=== PATIENT | male | born 1955 | race Caucasian/White ===

== ENCOUNTER 2017-12-05 06:21 | Day surgery (SDC) | payer OTHER ==
[2017-12-03 14:42] VITALS: BMI 35.4
[~2017-12-05 06:21] MED LIST: TOBRAMYCIN/DEXAMETHASONE OPHTH. OINTMENT 1 TUBE OS ONE
[2017-12-05] MEDS ORDERED: DICLOFENAC SODIUM 0.1% OPHTHALMIC 2.5ML BOTTLE ONE (06:50)
[2017-12-05] MEDS: PHENYLEPHRINE 2.5% OPHTH SOLN 15 ML BOTTLE ONE ×3 (07:00→07:25)
[2017-12-05] MEDS: OFLOXACIN 0.3% OPHTHALMIC SOLUTION 5 ML BOTTLE ONE ×3 (07:00→07:25)
[2017-12-05] MEDS: MOXIFLOXACIN HCL 0.5% OPHTHALMIC 3 ML BOTTLE ONE ×3 (07:00→07:25)
[2017-12-05] MEDS ORDERED: CHONDROITIN SU A/HYALUR SOD 1 KIT ONE ×2 (07:12→08:52)
[2017-12-05] MEDS ORDERED: EPINEPHrine/PF 1 MG/1 ML (1:1,000) AMPULE ONE (07:14)
[2017-12-05] MEDS ORDERED: LIDOCAINE HCL 2% JELLY (5 ML/TUBE) ONE (07:14)
[2017-12-05] MEDS ORDERED: BSS (NA/CA/MG/K) BALANCED SALT SOLUTION OPHTH SOLN 15 ML BOTTLE ONE (07:15)
[2017-12-05] MEDS: TROPICAMIDE 1% OPHTH SOLN 15 ML BOTTLE ONE ×2 (07:15→07:25)
[2017-12-05] MEDS ORDERED: POVIDONE-IODINE 5% OPHTHALMIC PREP 30 ML SOLUTION ONE (07:15)
[2017-12-05] MEDS ORDERED: LIDOCAINE HCL/PF 1% SDV 5ML VIAL ONE (07:15)
[2017-12-05] MEDS ORDERED: MIDAZOLAM HCL 2 MG/2 ML SINGLE DOSE VIAL ONE (07:21)
[2017-12-05] MEDS ORDERED: ACETAMINOPHEN 325 MG TABLET (FP) PO PRN (07:23)
--- NOTE | 2017-12-05 07:25 | HP ---
History & Physical Update - History History: No Change (Reviewed H and P from Dr. De Jesus from 11/05/17 no changes) - Physical Physical: No Change - Assessment Assessment: No Change - Plan Plan: No Change
--- NOTE | 2017-12-05 07:29 | HP ---
- Patient Scheduled date of Surgery: 12/05/17 Scheduled Surgical Procedure: Phacoemulsification and cataract extraction with PCIOL Affected Eye: Left Chief Complaint (Indication for surgery): Decreased vision affecting ADLs - Ocular History Other Eye History: Other (NAOIN, PDR) Eye Medications: vigamox , ilevro Previous Eye Surgery: s/p ce/pciol OD, s/p prp, s/p multiple intravitreal injections ou - Medical History Illnesses: Hypertension, Diabetes, Other (s/p R BKA) Current Medications: Ambulatory Orders Ascorbic Acid [Vitamin C] 500 mg PO BID 08/01/14 Multivitamins [Multivit ([facility] Formulary)] 1 tab PO DAILY 08/01/14 Aspirin [ASA -] 1 tab PO DAILY 02/11/17 Docusate Sodium [Colace -] 2 tab PO BID 02/11/17 Fluoxetine HCl 60 mg PO DAILY 02/11/17 Furosemide [Lasix] 1 tab PO DAILY 02/11/17 Gabapentin [Neurontin] 2 cap PO BID 02/11/17 Glipizide [Glipizide ER] 10 mg PO BID 02/11/17 Linagliptin [Tradjenta] 5 mg PO DAILY 02/11/17 Loratadine [Claritin] 1 tab PO DAILY 02/11/17 Polyethylene Glycol 3350 [Miralax 119 gm Btl -] 17 gm PO BID 02/11/17 Ramipril [Altace] 2.5 mg PO DAILY 02/11/17 Insulin Glargine,Hum.rec.anlog [Lantus Solostar PEN (NF)] 30 units SQ DAILY 03/30 Nepafenac [Ilevro] 1.7 ml OD DAILY 11/20/17 Allergies/Adverse Reactions: Allergies Allergy/AdvReac Type Severity Reaction Status Date / Time No Known Drug Allergies Allergy Verified 12/03/17 14:42 lactose AdvReac Verified 12/03/17 14:42 Ocular Examination - Best Corrected Visual Acuity Distance: Right eye: HM Distance: Left eye: 20/200 - External/Slit Lamp Examination Abnormalities: stromal scar - Intraocular Pressure Intraocular Pressure - Right eye: 17 Intraocular Pressure-Left eye: 16 - Lens Lens: 2+ NS 1+ cortical 1+ PSC - Vitreous/Retina Vitreous/Retina: c:d 0.15 m dot blot heme, v severely attenuated vessels, p prp scars - Special Examination M - Right eye: +0.50-1.25 x 98 M - Left eye: +0.50-3.00 x 075 K - Right eye: 44.75/46 x 016 K - Left eye: 44.50/46 x170 AL - Right eye: 23.89 AL - Left eye: 24.02 IOL bag: +17.5 AUOOTO IOL sulcus: +16.5 MN60AC IOL AC: +14.5 MTA4uo - Impression Impression: Cataract Left Eye (PSC) - Plan Plan: Phacoemulsification and cataract extraction - IOL Left eye Post-hospital care will be provided in office on: 12/06/17
[2017-12-05] MEDS ORDERED: PHENYLEPHRINE 2.5% OPHTH SOLN 15 ML BOTTLE OP SCH (07:30)
[2017-12-05] MEDS ORDERED: KETOROLAC TROMETHAMINE 0.5% 5 ML BOTTLE OPTHALMIC OP SCH (07:30)
[2017-12-05] MEDS ORDERED: CIPROFLOXACIN HCL 0.3% OPHTH 2.5ML BOTTLE OP SCH (07:30)
[2017-12-05] MEDS ORDERED: TROPICAMIDE 1% OPHTH SOLN 15 ML BOTTLE OP SCH (07:30)
[2017-12-05] MEDS ORDERED: LIDOCAINE HCL 2% JELLY (5 ML/TUBE) TP ONE (07:43)
[2017-12-05] MEDS ORDERED: POVIDONE-IODINE 5% OPHTHALMIC PREP 30 ML SOLUTION OS ONE (07:47)
[2017-12-05] MEDS ORDERED: LIDOCAINE HCL 1% PRESERVATIVE FREE - 30ML VIAL IO ONE (07:54)
[2017-12-05] MEDS ORDERED: CHONDROITIN SU A/HYALUR SOD 1 KIT IO ONE ×2 (07:54)
[2017-12-05] MEDS ORDERED: BSS (NA/CA/MG/K) BALANCED SALT SOLUTION OPHTH SOLN 15 ML BOTTLE OS ONE (07:54)
[2017-12-05] MEDS ORDERED: EPINEPHrine/PF 1 MG/1 ML (1:1,000) AMPULE SQ ONE (08:01)
[2017-12-05] MEDS ORDERED: TOBRAMYCIN/DEXAMETHASONE OPHTH. OINTMENT 1 TUBE OS ONE (08:26)
--- NOTE | 2017-12-05 08:33 | OP ---
Ophthalmology Operative Note Pre-Operative Diagnosis: Cataract (psc) Affected Eye: Left Operation: Phacoemulsification and cataract extraction with PCIOL Findings: PSC cataract left eye Post-Operative Diagnosis: Same as Pre-op Building Components Designer: None Anesthesiologist: Tylor Shelton Anesthesia: Topical Specimens Removed: none Estimated blood loss: < 1 cc Drains & Tubes with Location: none Operative Report Dictated: Yes
--- NOTE | 2017-12-05 09:16 | OP ---
DATE OF OPERATION: 12/05/2017 PREOPERATIVE DIAGNOSIS: Posterior subcapsular cataract, left eye. POSTOPERATIVE DIAGNOSIS: Posterior subcapsular cataract, left eye. PROCEDURE: Phacoemulsification and cataract extraction with insertion of posterior chamber intraocular lens, left eye. SURGEON: Michelle Tanner MD HOT[employer] MOTEL [employer]ING SUPERVISOR: None. ANESTHESIA: Topical. ANESTHESIOLOGIST: Tylor Shelton MD OPERATIVE PROCEDURE: The patient received 2% lidocaine gel and then was gently sedated and prepped and draped in the usual sterile fashion so as to expose only the left eye. Ophthalmic Betadine was instilled into the inferior fornix. The lashes were taped out of the surgical field. An eyelid speculum was placed into the left eye. A paracentesis was made in inferior clear cornea at the limbus. Next, 0.5 mL of nonpreserved lidocaine 1% was injected into the anterior chamber. Viscoelastic material was instilled into the anterior chamber via the paracentesis. A 2.4-mm keratome was then used to create the main incision in temporal clear cornea at the limbus. A continuous curvilinear capsulorrhexis was performed using a cystotome and Utrata forceps. Hydrodissection of the lens cortex was performed using BSS on a cannula until the nucleus was noted to be freely rotating. The phacoemulsification tip was inserted via the main wound and used to sculpt 2 perpendicular grooves into the lens nucleus. The nucleus was cracked into 4 quadrants using 2 instruments. Each quadrant was lifted out of the capsule into the iris plane and individually phacoemulsified. The remaining cortical material was then aspirated using the irrigation and aspiration port. The capsular bag was inflated using Provisc, and a preloaded AcrySof lens model AU00T0, power +17.5 diopters was injected into the capsular bag and centered using a Sinskey hook. The residual viscoelastic material was removed from the anterior chamber using irrigation and aspiration. The wound edges were hydrated using BSS. The wound was tested for leakage. It was found to be watertight. Therefore, TobraDex ointment was placed into the eye. The speculum was removed from the eye, and the eyelid was closed. At this point, an eye shield was placed over the eye, and the patient was transferred to the recovery room in stable condition, told to follow up in 1 day. MICHELLE TANNER M.D. [id number]
[2017-12-05 12:17] VITALS: BP 135/75; PULSE 68; TEMP 97.9
== END 2017-12-05 10:30 ==
LOC: JASU-SURG 06:21
PROVIDERS: ATTEND Ophthalmology
PROC: 08RK3JZ Replacement of Left Lens with Synthetic Substitute, Percutaneous Approach (ICD-10-PCS; principal; 2017-12-05 07:30)
DX: H26.9 Unspecified cataract (principal); I12.9 Hypertensive chronic kidney disease with stage 1 through stage 4 chronic kidney disease, or unspecified chronic kidney disease; E11.22 Type 2 diabetes mellitus with diabetic chronic kidney disease; N18.3 Chronic kidney disease, stage 3 (moderate); Z79.4 Long term (current) use of insulin
CPT/HCPCS: 82962

== ENCOUNTER 2018-05-29 08:29 | Day surgery (SDC) | payer OTHER ==
[2018-05-29 10:33] VITALS: BMI 34.7
[2018-05-29 11:33] VITALS: TEMP 98
[2018-05-29 15:19] VITALS: BP 138/66; PULSE 69
--- NOTE | 2018-05-30 17:35 | PATH ---
Surgical Pathology Report Patient Name: LILIANA ROBINS [facility]. Rec. #: [id number] /Age/Gender: 1955 (Age: 63) / M Account: [id number] Location: U-ENDOSCOPY Taken: 05/29/2018 Received: 05/29/2018 Reported: 05/30/2018 Physicians: Dylan Byrne M.D. Specimen(s) Received BX STOMACH Clinical History History of-ulcer, history of anemia Postoperative diagnosis: Erythema, retained food, healed ulcer Final Diagnosis STOMACH, BODY, BIOPSY: GASTRIC BODY MUCOSA WITH MILD CHRONIC GASTRITIS AND FOCAL EROSION. IMMUNOHISTOCHEMICAL STAIN FOR H. PYLORI IS NEGATIVE. Electronically Signed Keila Bond M.D. Gross Description Received in formalin, labeled "body of stomach biopsy" are 2 cisneros, irregular portions of soft tissue averaging 0.4 cm. in greatest dimension. The specimens are submitted in toto in one cassette. /05/29/2018 saudi05/29/2018
== END 2018-05-29 14:00 | disposition home or self-care (01) ==
LOC: JASU-ENDO 08:29
PROVIDERS: ATTEND Internal Medicine Gastroenterology
PROC: 0DB68ZX Excision of Stomach, Via Natural or Artificial Opening Endoscopic, Diagnostic (ICD-10-PCS; principal; 2018-05-29 08:30)
DX: D64.9 Anemia, unspecified (principal)
CPT/HCPCS: 82962; 88305-TC; 88342-TC

== ENCOUNTER 2021-01-28 09:41 | Inpatient (IN) | payer OTHER ==
[2021-01-28] MEDS ORDERED: DIPHTH,PERTUSS(ACELL),TET 0.5 ML DISP.SYRIN IM ONE ×2 (11:58→12:03)
[2021-01-29 01:38] LABS: EPI CELLS 4 /uL (0-25.1); HYALINE CASTS 3 /uL (0-3.1); URINE APPEARANCE CLEAR; URINE BACTERIA 19 /uL (0-1359); URINE BILIRUBIN NEGATIVE (NEGATIVE); URINE COLOR DK YELLOW; URINE GLUCOSE (UA) NEGATIVE (NEGATIVE); URINE KETONE TRACE (NEGATIVE); URINE LEUK ESTERASE NEGATIVE (NEGATIVE); URINE NITRITE NEGATIVE (NEGATIVE); URINE PROTEIN 1+ (NEGATIVE); URINE RBC 28 /uL (0-23.9); URINE WBC 28 /uL (0-25.8)
[2021-01-29] MEDS: ACETAMINOPHEN 325 MG TABLET (FP) PO PRN ×4 (02:00→21:13)
[2021-01-29] MEDS: INSULIN SLIDING SCALE (NOVOLOG) 1 VIAL SQ SCH ×4 (06:08→21:15)
[2021-01-29] MEDS: ENOXAPARIN NA (PORCINE) 40 MG/0.4 ML DISP.SYRIN SQ SCH (10:42)
[2021-01-29 11:43] LABS: BASO % 0.3 % (0-2.0); EOS % 0.4 % (0-4.5); HEMATOCRIT 29.3 % (35.4-49); HEMOGLOBIN 9.7 GM/dL (11.7-16.9); LYMPH % 7.2 % (8-40); MCH 27.9 pg (25.7-33.7); MCHC 32.9 g/dl (32.0-35.9); MEAN CELL VOLUME 84.9 fl (80-96); MEAN PLT VOLUME 7.5 fl (7.5-11.1); MONO % 12.7 % (3.8-10.2); NEUT % 79.4 % (42.8-82.8); PLATELET COUNT 325 10^3/uL (134-434); RBC 3.46 M/mm3 (4.00-5.60); RDW 15.3 % (11.9-15.9)
[2021-01-29 12:03] LABS: ALBUMIN 2.2 g/dl (3.4-5.0); BLOOD UREA NITROGEN 56.3 mg/dL (7-18); CALCIUM 8.7 mg/dL (8.5-10.1)
[2021-01-29 12:06] LABS: BILIRUBIN,TOTAL 0.6 mg/dL (0.2-1)
[2021-01-29] MEDS ORDERED: PT OWN MED DRAWER 7, Y5N ONE (12:15)
[2021-01-29] MEDS ORDERED: cefTRIAXone SODIUM 1 GM VIAL ONE (16:38)
[2021-01-29] MEDS ORDERED: DEXTROSE 5%-WATER - 50 ML IVPB ONE (16:38)
[2021-01-29] MEDS: CEFTRIAXONE 1 GM in DEXTROSE 5%-WATER - 50 ML IVPB SCH (17:01)
[2021-01-29] MEDS: SODIUM CHLORIDE 1,000 ML IV SCH (17:02)
[2021-01-29] MEDS: MINERAL OIL/PET HY-PHL TOPICAL OINTMENT 454 GM JAR TP SCH (21:13)
[2021-01-29] MEDS: FLUoxetine HCL 20 MG CAPSULE PO SCH (21:14)
[2021-01-29] MEDS: BACITRACIN 15 GM TUBE TOPICAL OINTMENT TP SCH (21:14)
[2021-01-29] MEDS: GABAPENTIN 100 MG CAPSULE PO SCH (21:14)
[2021-01-30] MEDS: SODIUM CHLORIDE 1,000 ML IV SCH ×4 (01:47→21:43)
[2021-01-30] MEDS: FLUoxetine HCL 20 MG CAPSULE PO SCH ×3 (05:37→21:46)
[2021-01-30] MEDS: INSULIN SLIDING SCALE (NOVOLOG) 1 VIAL SQ SCH ×4 (06:07→21:51)
[2021-01-30] MEDS ORDERED: DEXTROSE 5%-WATER - 50 ML IVPB ONE (09:20)
[2021-01-30] MEDS ORDERED: cefTRIAXone SODIUM 1 GM VIAL ONE (09:20)
[2021-01-30] MEDS ORDERED: PT OWN MED DRAWER 7, Y5N ONE ×2 (09:20→22:01)
[2021-01-30] MEDS: HYDROCHLOROTHIAZIDE 12.5 MG CAPSULE (FP) PO SCH (09:23)
[2021-01-30] MEDS: PANTOPRAZOLE 40 MG TABLET PO SCH (09:23)
[2021-01-30] MEDS: MINERAL OIL/PET HY-PHL TOPICAL OINTMENT 454 GM JAR TP SCH ×2 (09:23→21:45)
[2021-01-30] MEDS: CEFTRIAXONE 1 GM in DEXTROSE 5%-WATER - 50 ML IVPB SCH (09:23)
[2021-01-30] MEDS: BACITRACIN 15 GM TUBE TOPICAL OINTMENT TP SCH ×3 (09:23→21:44)
[2021-01-30] MEDS: GABAPENTIN 100 MG CAPSULE PO SCH ×2 (09:23→21:46)
[2021-01-30] MEDS: ENOXAPARIN NA (PORCINE) 40 MG/0.4 ML DISP.SYRIN SQ SCH (09:23)
[2021-01-30 09:25] LABS: BASO % 0.4 % (0-2.0); EOS % 3.4 % (0-4.5); HEMATOCRIT 30.3 % (35.4-49); HEMOGLOBIN 9.9 GM/dL (11.7-16.9); LYMPH % 6.8 % (8-40); MCH 28.2 pg (25.7-33.7); MCHC 32.7 g/dl (32.0-35.9); MEAN PLT VOLUME 7.9 fl (7.5-11.1); MONO % 9.1 % (3.8-10.2); NEUT % 80.3 % (42.8-82.8); PLATELET COUNT 375 10^3/uL (134-434); RBC 3.52 M/mm3 (4.00-5.60); RDW 15.3 % (11.9-15.9); WHITE BLOOD COUNT 9.7 K/mm3 (4.0-10.0)
[2021-01-30] MEDS ORDERED: PATIENT'S OWN MEDICATION (NON-FORMULARY) (Patiromer Calcium Sorbitex [Veltassa] 8.4 GM Pow PO SCH (10:00)
[2021-01-30 10:16] LABS: BLOOD UREA NITROGEN 40.3 mg/dL (7-18); CALCIUM 8.1 mg/dL (8.5-10.1); MAGNESIUM 2.8 mg/dL (1.8-2.4)
[2021-01-30 10:19] LABS: CREATININE 1.2 mg/dL (0.55-1.3)
[2021-01-30 10:20] LABS: PHOSPHOROUS 2.9 mg/dL (2.5-4.9)
[2021-01-30 10:21] LABS: BILIRUBIN,TOTAL 0.6 mg/dL (0.2-1); TOT PROT 5.9 g/dl (6.4-8.2)
[2021-01-30] MEDS ORDERED: INSULIN (NOVOLOG) ASPART 100 UNITS/ML 10ML VIAL ONE (11:35)
[2021-01-30] MEDS: NYSTATIN POWDER 100,000 UNITS/GM - 15 GM TOPICAL POWDER TP SCH ×2 (11:56→22:03)
[2021-01-30 15:47] VITALS: BMI 30.5
[2021-01-31] MEDS: SODIUM CHLORIDE 1,000 ML IV SCH (05:46)
[2021-01-31] MEDS: FLUoxetine HCL 20 MG CAPSULE PO SCH ×3 (05:49→21:25)
[2021-01-31] MEDS: INSULIN SLIDING SCALE (NOVOLOG) 1 VIAL SQ SCH ×4 (06:02→21:25)
[2021-01-31] MEDS: BACITRACIN 15 GM TUBE TOPICAL OINTMENT TP SCH ×2 (10:00→21:27)
[2021-01-31] MEDS ORDERED: cefTRIAXone SODIUM 1 GM VIAL ONE (10:57)
[2021-01-31] MEDS ORDERED: DEXTROSE 5%-WATER - 50 ML IVPB ONE (10:57)
[2021-01-31] MEDS: GABAPENTIN 100 MG CAPSULE PO SCH ×2 (10:59→21:25)
[2021-01-31] MEDS: ENOXAPARIN NA (PORCINE) 40 MG/0.4 ML DISP.SYRIN SQ SCH (10:59)
[2021-01-31] MEDS: HYDROCHLOROTHIAZIDE 12.5 MG CAPSULE (FP) PO SCH (10:59)
[2021-01-31] MEDS: PANTOPRAZOLE 40 MG TABLET PO SCH (10:59)
[2021-01-31] MEDS: CEFTRIAXONE 1 GM in DEXTROSE 5%-WATER - 50 ML IVPB SCH (10:59)
[2021-01-31] MEDS: MINERAL OIL/PET HY-PHL TOPICAL OINTMENT 454 GM JAR TP SCH ×2 (11:00→21:26)
[2021-01-31] MEDS: NYSTATIN POWDER 100,000 UNITS/GM - 15 GM TOPICAL POWDER TP SCH ×2 (11:00→21:28)
[2021-01-31] MEDS ORDERED: PATIENT'S OWN MEDICATION (NON-FORMULARY) (Lisinopril/Hydrochlorothiazide [Lisinopril-Hctz PO SCH (11:30)
[2021-01-31] MEDS ORDERED: LISINOPRIL 10 MG TABLET PO ONE (11:45)
[2021-01-31] MEDS ORDERED: LISINOPRIL 10 MG TABLET PO SCH (11:45)
[2021-01-31] MEDS ORDERED: HYDROCHLOROTHIAZIDE 12.5 MG CAPSULE (FP) PO SCH (11:45)
[2021-01-31] MEDS ORDERED: INSULIN (NOVOLOG) ASPART 100 UNITS/ML 10ML VIAL ONE ×2 (12:08→20:56)
[2021-01-31] MEDS ORDERED: PT OWN MED DRAWER 7, Y5N ONE (14:30)
[2021-01-31 15:37] LABS: BASO % 0.5 % (0-2.0); EOS % 4.8 % (0-4.5); HEMATOCRIT 29.8 % (35.4-49); HEMOGLOBIN 9.6 GM/dL (11.7-16.9); LYMPH % 10.3 % (8-40); MCH 27.5 pg (25.7-33.7); MCHC 32.3 g/dl (32.0-35.9); MEAN CELL VOLUME 85.4 fl (80-96); MEAN PLT VOLUME 7.5 fl (7.5-11.1); MONO % 10.9 % (3.8-10.2); NEUT % 73.5 % (42.8-82.8); PLATELET COUNT 353 10^3/uL (134-434); RBC 3.49 M/mm3 (4.00-5.60); RDW 15.4 % (11.9-15.9); WHITE BLOOD COUNT 7.9 K/mm3 (4.0-10.0)
[2021-01-31 15:58] LABS: BLOOD UREA NITROGEN 22.7 mg/dL (7-18); MAGNESIUM 2.3 mg/dL (1.8-2.4)
[2021-01-31 16:01] LABS: PHOSPHOROUS 2.5 mg/dL (2.5-4.9)
[2021-01-31 16:02] LABS: BILIRUBIN,TOTAL 0.3 mg/dL (0.2-1); TOT PROT 5.7 g/dl (6.4-8.2)
[2021-01-31 16:06] LABS: CALCIUM 8.2 mg/dL (8.5-10.1)
[2021-01-31] MEDS: FUROSEMIDE 20 MG TABLET (FP) PO SCH ×2 (16:30→20:15)
[2021-02-01] MEDS: FUROSEMIDE 20 MG TABLET (FP) PO SCH (06:26)
[2021-02-01] MEDS: FLUoxetine HCL 20 MG CAPSULE PO SCH (06:26)
[2021-02-01] MEDS: INSULIN SLIDING SCALE (NOVOLOG) 1 VIAL SQ SCH (06:27)
[2021-02-01] MEDS ORDERED: cefTRIAXone SODIUM 1 GM VIAL ONE (09:39)
[2021-02-01] MEDS ORDERED: DEXTROSE 5%-WATER - 50 ML IVPB ONE (09:40)
[2021-02-01] MEDS ORDERED: PT OWN MED DRAWER 7, Y5N ONE ×2 (09:42→12:44)
[2021-02-01] MEDS: PANTOPRAZOLE 40 MG TABLET PO SCH (09:44)
[2021-02-01] MEDS: GABAPENTIN 100 MG CAPSULE PO SCH (09:44)
[2021-02-01] MEDS: ENOXAPARIN NA (PORCINE) 40 MG/0.4 ML DISP.SYRIN SQ SCH (09:44)
[2021-02-01] MEDS: CEFTRIAXONE 1 GM in DEXTROSE 5%-WATER - 50 ML IVPB SCH (09:44)
[2021-02-01] MEDS: NYSTATIN POWDER 100,000 UNITS/GM - 15 GM TOPICAL POWDER TP SCH (09:45)
[2021-02-01] MEDS: BACITRACIN 15 GM TUBE TOPICAL OINTMENT TP SCH (09:46)
[2021-02-01] MEDS: MINERAL OIL/PET HY-PHL TOPICAL OINTMENT 454 GM JAR TP SCH (09:46)
[2021-02-01] MEDS ORDERED: LISINOPRIL 10 MG TABLET PO SCH (10:00)
[2021-02-01] MEDS ORDERED: HYDROCHLOROTHIAZIDE 12.5 MG CAPSULE (FP) PO SCH (10:00)
[2021-02-01 10:08] VITALS: BP 112/60; PULSE 68; TEMP 98.5
== END 2021-02-01 11:00 | DRG 683 ==
LOC: JER 09:41 → JERBED 17:35 → J8W 20:51 → OBSVTOIN 01-31 14:03
PROVIDERS: ADMIT Internal Medicine; ATTEND Internal Medicine
DX: N17.9 Acute kidney failure, unspecified (principal); L97.929 Non-pressure chronic ulcer of unspecified part of left lower leg with unspecified severity; N39.0 Urinary tract infection, site not specified; Z89.511 Acquired absence of right leg below knee; B35.6 Tinea cruris; I12.9 Hypertensive chronic kidney disease with stage 1 through stage 4 chronic kidney disease, or unspecified chronic kidney disease; E11.22 Type 2 diabetes mellitus with diabetic chronic kidney disease; N18.9 Chronic kidney disease, unspecified; S91.119A Laceration without foreign body of unspecified toe without damage to nail, initial encounter; W19.XXXA Unspecified fall, initial encounter; Y93.89 Activity, other specified; Y92.89 Other specified places as the place of occurrence of the external cause; Y99.8 Other external cause status
CPT/HCPCS: 36415; 71046-TC-FY; 73523-TC-FY; 80053; 81003; 82962; 83735; 83935; 84100; 84300; 85025; 87040; 87070; 87077; 87081; 87086; 87186; 87205; 90715; 99285-25; C9803; G0378; U0003; U0005

== ENCOUNTER 2021-02-21 05:51 | Inpatient (IN) | payer OTHER ==
[2021-02-21] MEDS ORDERED: FAMOTIDINE 20 MG/50 ML IVPB 20 MG/50 ML MG IVPB ONE ×2 (07:28→08:12)
[2021-02-21] MEDS ORDERED: METOCLOPRAMIDE HCL INJECTION 10 MG/2 ML VIAL IVPB ONE (07:28)
[2021-02-21] MEDS ORDERED: SODIUM CHLORIDE 0.9% 500 ML INFUS.BAG IV ONE (07:29)
[2021-02-21] MEDS ORDERED: ACETAMINOPHEN 1000 MG/100 ML VIAL IVPB ONE (07:29)
[2021-02-21 07:40] LABS: BASO % 0.5 % (0-2.0); HEMATOCRIT 33.6 % (35.4-49); HEMOGLOBIN 10.8 GM/dL (11.7-16.9); LYMPH % 3.3 % (8-40); MCH 26.2 pg (25.7-33.7); MEAN CELL VOLUME 81.8 fl (80-96); MEAN PLT VOLUME 7.8 fl (7.5-11.1); MONO % 6.8 % (3.8-10.2); NEUT % 89.4 % (42.8-82.8); PLATELET COUNT 382 10^3/uL (134-434); RBC 4.11 M/mm3 (4.00-5.60); RDW 16.5 % (11.9-15.9)
[2021-02-21 07:58] LABS: CHLORIDE 100 mmol/L (98-107); SODIUM 136 mmol/L (136-145)
[2021-02-21 08:00] LABS: CALCIUM 8.6 mg/dL (8.5-10.1)
[2021-02-21 08:01] LABS: ALBUMIN 2.6 g/dl (3.4-5.0); ANION GAP 12 MMOL/L (8-16); BLOOD UREA NITROGEN 24.4 mg/dL (7-18); CO2 24 mmol/L (21-32); LIPASE 77 U/L (73-393)
[2021-02-21 08:03] LABS: MAGNESIUM 1.9 mg/dL (1.8-2.4)
[2021-02-21 08:04] LABS: CREATININE 1.1 mg/dL (0.55-1.3); SGOT/AST 385 U/L (15-37); SGPT/ALT 62 U/L (13-61)
[2021-02-21 08:05] LABS: BILIRUBIN,TOTAL 0.7 mg/dL (0.2-1); TOT PROT 7.5 g/dl (6.4-8.2)
[2021-02-21 08:06] LABS: GLUCOSE,RANDOM 192 mg/dL (74-106); PHOSPHOROUS 2.6 mg/dL (2.5-4.9)
[2021-02-21 08:07] LABS: ALK PHOS 137 U/L (45-117)
[2021-02-21] MEDS ORDERED: METOCLOPRAMIDE HCL INJECTION 10 MG/2 ML VIAL ONE (08:11)
[2021-02-21] MEDS ORDERED: ACETAMINOPHEN INJECTION 100 ML IVPB ONE (08:11)
[2021-02-21] MEDS ORDERED: CEFTRIAXONE 1,000 MG in DEXTROSE 5%-WATER - 50 ML IVPB ONE (11:31)
[2021-02-21] MEDS ORDERED: cefTRIAXone SODIUM 1 GM VIAL ONE (13:13)
[2021-02-21] MEDS: LACTATED RINGERS SOLUTION 1,000 ML/1,000 ML INFUS.BAG IV SCH (13:15)
[2021-02-21 14:47] LABS: IRON SERUM 9 ug/dL (50-175); TOTAL IRON BINDING CAPACITY 247 ug/dL (250-450)
[2021-02-21] MEDS: NYSTATIN POWDER 100,000 UNITS/GM - 15 GM TOPICAL POWDER TP SCH (23:00)
[2021-02-21] MEDS: INSULIN SLIDING SCALE (NOVOLOG) 1 VIAL SQ SCH (23:34)
[2021-02-21] MEDS ORDERED: ONDANSETRON 4 MG/2 ML VIAL IVPUSH ONE (23:45)
[2021-02-22] MEDS: INSULIN SLIDING SCALE (NOVOLOG) 1 VIAL SQ SCH ×5 (00:59→22:10)
[2021-02-22] MEDS: CEFAZOLIN 1 GM/D5W 1 GM/50 ML BAG IVPB SCH ×2 (03:00→04:51)
[2021-02-22] MEDS ORDERED: ceFAZolin SODIUM 1 GM VIAL ONE ×3 (04:51→16:10)
[2021-02-22] MEDS ORDERED: DEXTROSE 5%-WATER - 50 ML IVPB ONE ×3 (04:52→16:11)
[2021-02-22 05:50] VITALS: BMI 37.6
[2021-02-22] MEDS ORDERED: ONDANSETRON 4 MG/2 ML VIAL IVPUSH ONE ×2 (06:28→12:37)
[2021-02-22 07:04] LABS: BASO % 0.2 % (0-2.0); HEMATOCRIT 31.8 % (35.4-49); HEMOGLOBIN 10.1 GM/dL (11.7-16.9); LYMPH % 4.7 % (8-40); MCHC 31.7 g/dl (32.0-35.9); MEAN CELL VOLUME 82.2 fl (80-96); MEAN PLT VOLUME 7.5 fl (7.5-11.1); MONO % 9.5 % (3.8-10.2); NEUT % 85.6 % (42.8-82.8); PLATELET COUNT 387 10^3/uL (134-434); RBC 3.87 M/mm3 (4.00-5.60); RDW 16.3 % (11.9-15.9)
[2021-02-22] MEDS: LACTATED RINGERS SOLUTION 1,000 ML/1,000 ML INFUS.BAG IV SCH ×2 (07:09→13:18)
[2021-02-22 08:02] LABS: ALBUMIN 2.3 g/dl (3.4-5.0); CALCIUM 8.5 mg/dL (8.5-10.1)
[2021-02-22 08:03] LABS: BLOOD UREA NITROGEN 30.6 mg/dL (7-18); MAGNESIUM 1.9 mg/dL (1.8-2.4)
[2021-02-22 08:05] LABS: CREATININE 1.2 mg/dL (0.55-1.3); PHOSPHOROUS 3.1 mg/dL (2.5-4.9)
[2021-02-22 08:06] LABS: BILIRUBIN,TOTAL 0.4 mg/dL (0.2-1)
[2021-02-22 08:07] LABS: TOT PROT 6.6 g/dl (6.4-8.2)
[2021-02-22] MEDS: CEFAZOLIN 1 GM in DEXTROSE 5%-WATER - 1 GM/50 ML IVPB IVPB SCH ×2 (09:31→18:22)
[2021-02-22] MEDS: NYSTATIN POWDER 100,000 UNITS/GM - 15 GM TOPICAL POWDER TP SCH (11:00)
[2021-02-22 11:29] LABS: INR 1.33 (0.83-1.09); PROTHROMBIN TIME (PATIENT) 16.2 SEC (9.7-13.0)
[2021-02-22 11:32] LABS: ACTIVATED PTT 27.9 SECONDS (25.2-36.5)
[2021-02-22 17:38] LABS: COCAINE, UR NEGATIVE (NEGATIVE); URINE BENZODIAZEPINES NEGATIVE (NEGATIVE)
[2021-02-22 17:39] LABS: METHADONE, UR NEGATIVE (NEGATIVE); OPIATES, URI NEGATIVE (NEGATIVE); PHENCYCLIDINE,URINE NEGATIVE (NEGATIVE); URINE BARBITURATES NEGATIVE (NEGATIVE)
[2021-02-22 17:41] LABS: URINE AMPHETAMINES NEGATIVE (NEGATIVE)
[2021-02-22] MEDS ORDERED: FUROSEMIDE 20 MG TABLET (FP) PO SCH (20:00)
[2021-02-22] MEDS ORDERED: TRIMETHOBENZAMIDE HCL 200MG/2ML INJ IM PRN (20:53)
[2021-02-22] MEDS ORDERED: INSULIN (NOVOLOG) ASPART 100 UNITS/ML 10ML VIAL ONE (22:06)
[2021-02-22] MEDS: GABAPENTIN 100 MG CAPSULE PO SCH (22:09)
[2021-02-22] MEDS: FLUoxetine HCL 20 MG CAPSULE PO SCH (22:09)
[2021-02-22] MEDS: ATORVASTATIN CA 80 MG TABLET (FP) PO SCH (22:09)
[2021-02-22] MEDS: BACITRACIN 15 GM TUBE TOPICAL OINTMENT TP SCH (22:10)
[2021-02-22] MEDS ORDERED: PT OWN MED DRAWER 7, Y5N ONE (22:54)
[2021-02-23] MEDS ORDERED: DEXTROSE 5%-WATER - 50 ML IVPB ONE ×3 (01:28→14:13)
[2021-02-23] MEDS ORDERED: ceFAZolin SODIUM 1 GM VIAL ONE ×2 (01:28→10:05)
[2021-02-23] MEDS: CEFAZOLIN 1 GM in DEXTROSE 5%-WATER - 1 GM/50 ML IVPB IVPB SCH ×2 (02:27→10:07)
[2021-02-23 05:38] LABS: EPI CELLS 2 /uL (0-25.1); HYALINE CASTS 0 /uL (0-3.1); URINE APPEARANCE CLOUDY; URINE BACTERIA 4 /uL (0-1359); URINE BILIRUBIN NEGATIVE (NEGATIVE); URINE COLOR YELLOW; URINE GLUCOSE (UA) NEGATIVE (NEGATIVE); URINE KETONE TRACE (NEGATIVE); URINE LEUK ESTERASE TRACE (NEGATIVE); URINE NITRITE NEGATIVE (NEGATIVE); URINE PROTEIN 2+ (NEGATIVE); URINE RBC 24 /uL (0-23.9); URINE WBC 4 /uL (0-25.8)
[2021-02-23] MEDS: INSULIN SLIDING SCALE (NOVOLOG) 1 VIAL SQ SCH ×4 (06:58→21:10)
[2021-02-23] MEDS: FLUoxetine HCL 20 MG CAPSULE PO SCH ×3 (06:58→21:10)
[2021-02-23] MEDS ORDERED: INSULIN (NOVOLOG) ASPART 100 UNITS/ML 10ML VIAL ONE ×2 (07:05→19:45)
[2021-02-23 07:51] LABS: BASO % 0.2 % (0-2.0); HEMATOCRIT 30.5 % (35.4-49); HEMOGLOBIN 9.7 GM/dL (11.7-16.9); MCH 26.3 pg (25.7-33.7); MCHC 31.8 g/dl (32.0-35.9); MEAN CELL VOLUME 82.5 fl (80-96); MEAN PLT VOLUME 7.9 fl (7.5-11.1); MONO % 10.4 % (3.8-10.2); NEUT % 81.4 % (42.8-82.8); PLATELET COUNT 403 10^3/uL (134-434); RDW 16.3 % (11.9-15.9); WHITE BLOOD COUNT 9.9 K/mm3 (4.0-10.0)
[2021-02-23 08:19] LABS: ALBUMIN 2.2 g/dl (3.4-5.0)
[2021-02-23 08:20] LABS: BLOOD UREA NITROGEN 33.1 mg/dL (7-18); CALCIUM 8.8 mg/dL (8.5-10.1); MAGNESIUM 2.2 mg/dL (1.8-2.4)
[2021-02-23 08:24] LABS: CREATININE 1.1 mg/dL (0.55-1.3); PHOSPHOROUS 2.6 mg/dL (2.5-4.9)
[2021-02-23 08:25] LABS: BILIRUBIN,TOTAL 0.9 mg/dL (0.2-1); TOT PROT 6.4 g/dl (6.4-8.2)
[2021-02-23] MEDS ORDERED: PATIENT'S OWN MEDICATION (NON-FORMULARY) (Lisinopril/Hydrochlorothiazide [Lisinopril-Hctz PO SCH (10:00)
[2021-02-23] MEDS ORDERED: PT OWN MED DRAWER 7, Y5N ONE (10:04)
[2021-02-23] MEDS: LORATADINE 10 MG TABLET PO SCH (10:12)
[2021-02-23] MEDS: GABAPENTIN 100 MG CAPSULE PO SCH ×2 (10:12→21:10)
[2021-02-23] MEDS: HYDROCHLOROTHIAZIDE 12.5 MG CAPSULE (FP) PO SCH (10:12)
[2021-02-23] MEDS: PANTOPRAZOLE 40 MG TABLET PO SCH (10:13)
[2021-02-23] MEDS: LISINOPRIL 10 MG TABLET PO SCH (10:13)
[2021-02-23] MEDS: BACITRACIN 15 GM TUBE TOPICAL OINTMENT TP SCH ×2 (10:13→21:10)
[2021-02-23] MEDS: NYSTATIN POWDER 100,000 UNITS/GM - 15 GM TOPICAL POWDER TP SCH (10:14)
[2021-02-23] MEDS: DOCUSATE SODIUM 100 MG CAPSULE (FP) PO SCH (10:43)
[2021-02-23] MEDS ORDERED: cefTRIAXone SODIUM 1 GM VIAL ONE (14:12)
[2021-02-23] MEDS: LACTATED RINGERS SOLUTION 1,000 ML/1,000 ML INFUS.BAG IV SCH (14:15)
[2021-02-23] MEDS: CEFTRIAXONE 1 GM in DEXTROSE 5%-WATER - 50 ML IVPB SCH (14:15)
[2021-02-23] MEDS ORDERED: BUPIVACAINE HCL/PF 0.5% (5MG/ML) 10 ML VIAL ONE (15:59)
[2021-02-23] MEDS ORDERED: PHENYLEPHRINE HCL 10 MG/1 ML SINGLE DOSE VIAL ONE (18:13)
[2021-02-23] MEDS: ATORVASTATIN CA 80 MG TABLET (FP) PO SCH (21:10)
[2021-02-23] MEDS: LIDOCAINE 5% TOPICAL PATCH TP SCH (22:39)
[2021-02-23] MEDS: LIDOCAINE PATCH REMOVAL MC SCH (22:39)
[2021-02-24] MEDS: INSULIN SLIDING SCALE (NOVOLOG) 1 VIAL SQ SCH ×4 (06:15→21:58)
[2021-02-24] MEDS: FLUoxetine HCL 20 MG CAPSULE PO SCH ×3 (06:15→21:57)
[2021-02-24 08:37] LABS: BASO % 0.3 % (0-2.0); EOS % 2.5 % (0-4.5); HEMATOCRIT 31.3 % (35.4-49); HEMOGLOBIN 9.9 GM/dL (11.7-16.9); LYMPH % 10.6 % (8-40); MCH 26.4 pg (25.7-33.7); MCHC 31.7 g/dl (32.0-35.9); MEAN CELL VOLUME 83.4 fl (80-96); MEAN PLT VOLUME 7.9 fl (7.5-11.1); MONO % 10.3 % (3.8-10.2); NEUT % 76.3 % (42.8-82.8); PLATELET COUNT 365 10^3/uL (134-434); RBC 3.76 M/mm3 (4.00-5.60); RDW 16.7 % (11.9-15.9); WHITE BLOOD COUNT 7.4 K/mm3 (4.0-10.0)
[2021-02-24] MEDS ORDERED: BUPIVACAINE HCL/PF 0.5% (5MG/ML) 10 ML VIAL ONE (08:37)
[2021-02-24 08:58] LABS: ALBUMIN 2.1 g/dl (3.4-5.0); BLOOD UREA NITROGEN 26.2 mg/dL (7-18); CALCIUM 8.2 mg/dL (8.5-10.1)
[2021-02-24 09:01] LABS: MAGNESIUM 1.9 mg/dL (1.8-2.4)
[2021-02-24 09:02] LABS: BILIRUBIN,TOTAL 1.2 mg/dL (0.2-1); PHOSPHOROUS 2.4 mg/dL (2.5-4.9)
[2021-02-24] MEDS: DOCUSATE SODIUM 100 MG CAPSULE (FP) PO SCH (09:54)
[2021-02-24] MEDS ORDERED: PT OWN MED DRAWER 7, Y5N ONE (09:58)
[2021-02-24] MEDS ORDERED: DEXTROSE 5%-WATER - 50 ML IVPB ONE (09:58)
[2021-02-24] MEDS ORDERED: cefTRIAXone SODIUM 1 GM VIAL ONE (09:58)
[2021-02-24] MEDS: NYSTATIN POWDER 100,000 UNITS/GM - 15 GM TOPICAL POWDER TP SCH (10:05)
[2021-02-24] MEDS: PANTOPRAZOLE 40 MG TABLET PO SCH (10:05)
[2021-02-24] MEDS: BACITRACIN 15 GM TUBE TOPICAL OINTMENT TP SCH ×2 (10:06→22:06)
[2021-02-24] MEDS: LISINOPRIL 10 MG TABLET PO SCH (10:06)
[2021-02-24] MEDS: LORATADINE 10 MG TABLET PO SCH (10:06)
[2021-02-24] MEDS: GABAPENTIN 100 MG CAPSULE PO SCH ×2 (10:06→21:57)
[2021-02-24] MEDS: HYDROCHLOROTHIAZIDE 12.5 MG CAPSULE (FP) PO SCH (10:06)
[2021-02-24] MEDS: LIDOCAINE 5% TOPICAL PATCH TP SCH (10:06)
[2021-02-24] MEDS: CEFTRIAXONE 1 GM in DEXTROSE 5%-WATER - 50 ML IVPB SCH (10:06)
[2021-02-24] MEDS: LACTATED RINGERS SOLUTION 1,000 ML/1,000 ML INFUS.BAG IV SCH (12:13)
[2021-02-24 15:41] VITALS: TEMP 98.4
[2021-02-24] MEDS: LIDOCAINE PATCH REMOVAL MC SCH (21:56)
[2021-02-24] MEDS: ATORVASTATIN CA 80 MG TABLET (FP) PO SCH (21:57)
[2021-02-24] MEDS ORDERED: HEPARIN NA (PORCINE) 5,000 UNITS/ML 1ML VIAL SQ SCH (22:00)
[2021-02-24 22:09] VITALS: BP 121/62; PULSE 73
== END 2021-02-25 03:15 | disposition short-term general hospital (02) | DRG 375 ==
LOC: JER 05:51 → JERBED 11:30 → J8W 18:29
PROVIDERS: ADMIT Internal Medicine
DX: D49.0 Neoplasm of unspecified behavior of digestive system (principal); K80.00 Calculus of gallbladder with acute cholecystitis without obstruction; R18.8 Other ascites; L97.929 Non-pressure chronic ulcer of unspecified part of left lower leg with unspecified severity; R10.11 Right upper quadrant pain; R59.9 Enlarged lymph nodes, unspecified; R63.0 Anorexia; N18.30 Chronic kidney disease, stage 3 unspecified; E11.51 Type 2 diabetes mellitus with diabetic peripheral angiopathy without gangrene; E11.22 Type 2 diabetes mellitus with diabetic chronic kidney disease; I12.9 Hypertensive chronic kidney disease with stage 1 through stage 4 chronic kidney disease, or unspecified chronic kidney disease; R21 Rash and other nonspecific skin eruption; E86.0 Dehydration; R16.0 Hepatomegaly, not elsewhere classified; R74.01 Elevation of levels of liver transaminase levels; I87.2 Venous insufficiency (chronic) (peripheral); D72.829 Elevated white blood cell count, unspecified
CPT/HCPCS: 36415; 71045-TC-FY; 74176-TC; 76705-TC; 78227-TC; 80053; 80307; 81003; 82105; 82378; 82550; 82553; 82728; 82962; 83036; 83516; 83540; 83550; 83690; 83735; 84100; 84484; 85025; 85610; 85730; 86038; 86301; 86705; 86706; 86707; 86708; 87086; 87340; 87350; 87517; 87522; 93005; 93010; 99285-25; A9537; C9803; J0131; J1644; U0003; U0005

== ENCOUNTER 2021-03-22 15:22 | Inpatient (IN) | payer OTHER ==
[2021-03-22] MEDS ORDERED: SODIUM CHLORIDE 0.9% 500 ML INFUS.BAG IV ONE (16:40)
[2021-03-22 18:02] LABS: BASO % 0.2 % (0-2.0); EOS % 1.3 % (0-4.5); HEMATOCRIT 31.5 % (35.4-49); HEMOGLOBIN 9.9 GM/dL (11.7-16.9); LYMPH % 5.4 % (8-40); MCH 24.8 pg (25.7-33.7); MCHC 31.3 g/dl (32.0-35.9); MEAN PLT VOLUME 8.2 fl (7.5-11.1); MONO % 9.7 % (3.8-10.2); NEUT % 83.4 % (42.8-82.8); PLATELET COUNT 365 10^3/uL (134-434); RBC 3.99 M/mm3 (4.00-5.60); RDW 18.8 % (11.9-15.9); WHITE BLOOD COUNT 8.6 K/mm3 (4.0-10.0)
[2021-03-22 18:08] LABS: INR 1.25 (0.83-1.09)
[2021-03-22 18:11] LABS: ACTIVATED PTT 29.2 SECONDS (25.2-36.5)
[2021-03-22 18:21] LABS: CALCIUM 8.4 mg/dL (8.5-10.1)
[2021-03-22 18:22] LABS: BLOOD UREA NITROGEN 37.1 mg/dL (7-18); MAGNESIUM 2.2 mg/dL (1.8-2.4)
[2021-03-22 18:24] LABS: CREATININE 1.9 mg/dL (0.55-1.3)
[2021-03-22 18:26] LABS: BILIRUBIN,TOTAL 0.5 mg/dL (0.2-1); TOT PROT 6.7 g/dl (6.4-8.2)
[2021-03-22 21:29] LABS: EPI CELLS 4 /uL (0-25.1); HYALINE CASTS 1 /uL (0-3.1); URINE APPEARANCE CLOUDY; URINE BACTERIA 11 /uL (0-1359); URINE BILIRUBIN NEGATIVE (NEGATIVE); URINE COLOR DK YELLOW; URINE GLUCOSE (UA) NEGATIVE (NEGATIVE); URINE KETONE NEGATIVE (NEGATIVE); URINE LEUK ESTERASE TRACE (NEGATIVE); URINE NITRITE NEGATIVE (NEGATIVE); URINE PROTEIN 2+ (NEGATIVE); URINE RBC 7 /uL (0-23.9); URINE WBC 30 /uL (0-25.8)
[2021-03-22] MEDS ORDERED: SODIUM CHLORIDE 1,000 ML IV SCH (22:00)
[2021-03-22] MEDS ORDERED: HEPARIN NA (PORCINE) 5,000 UNITS/ML 1ML VIAL ONE (22:51)
[2021-03-22] MEDS: HEPARIN NA (PORCINE) 5,000 UNITS/ML 1ML VIAL SQ SCH (23:17)
[2021-03-23] MEDS: INSULIN SLIDING SCALE (NOVOLOG) 1 VIAL SQ SCH ×5 (00:12→21:44)
[2021-03-23 01:18] LABS: BLOOD UREA NITROGEN 36.7 mg/dL (7-18); CALCIUM 8.1 mg/dL (8.5-10.1)
[2021-03-23 01:22] LABS: CREATININE 1.8 mg/dL (0.55-1.3)
[2021-03-23 05:24] LABS: EPI CELLS 3 /uL (0-25.1); HYALINE CASTS 2 /uL (0-3.1); URINE APPEARANCE CLOUDY; URINE BACTERIA 10 /uL (0-1359); URINE BILIRUBIN NEGATIVE (NEGATIVE); URINE COLOR YELLOW; URINE GLUCOSE (UA) NEGATIVE (NEGATIVE); URINE KETONE NEGATIVE (NEGATIVE); URINE LEUK ESTERASE TRACE (NEGATIVE); URINE NITRITE NEGATIVE (NEGATIVE); URINE PROTEIN 2+ (NEGATIVE); URINE UROBILINOGEN 0.2 mg/dL (0.2-1.0); URINE WBC 41 /uL (0-25.8)
[2021-03-23] MEDS: HEPARIN NA (PORCINE) 5,000 UNITS/ML 1ML VIAL SQ SCH ×3 (06:47→21:39)
[2021-03-23 09:07] LABS: BASO % 0.5 % (0-2.0); EOS % 1.8 % (0-4.5); HEMATOCRIT 31.5 % (35.4-49); HEMOGLOBIN 10.1 GM/dL (11.7-16.9); LYMPH % 6.8 % (8-40); MCH 25.1 pg (25.7-33.7); MEAN CELL VOLUME 78.5 fl (80-96); MEAN PLT VOLUME 8.2 fl (7.5-11.1); MONO % 8.1 % (3.8-10.2); NEUT % 82.8 % (42.8-82.8); PLATELET COUNT 425 10^3/uL (134-434); RBC 4.02 M/mm3 (4.00-5.60); RDW 18.1 % (11.9-15.9); RETICULOCYTES 0.82 % (0.5-1.5); WHITE BLOOD COUNT 8.8 K/mm3 (4.0-10.0)
[2021-03-23 09:31] LABS: CALCIUM 8.6 mg/dL (8.5-10.1)
[2021-03-23 09:32] LABS: ALBUMIN 1.8 g/dl (3.4-5.0); MAGNESIUM 2.1 mg/dL (1.8-2.4)
[2021-03-23 09:35] LABS: CREATININE 1.7 mg/dL (0.55-1.3); PHOSPHOROUS 2.9 mg/dL (2.5-4.9)
[2021-03-23 09:36] LABS: BILIRUBIN,TOTAL 0.4 mg/dL (0.2-1); TOT PROT 6.4 g/dl (6.4-8.2)
[2021-03-23 14:44] LABS: URINE RBC 22 /uL (0-23.9)
[2021-03-23] MEDS ORDERED: PT OWN MED DRAWER 7, Y5N ONE (15:29)
[2021-03-23 16:05] LABS: URINE CRYSTALS POSITIVE /hpf
[2021-03-23] MEDS ORDERED: FUROSEMIDE 20 MG TABLET (FP) PO SCH (16:15)
[2021-03-23] MEDS ORDERED: SODIUM CHLORIDE 1,000 ML IV SCH (17:00)
[2021-03-23] MEDS: amLODIPine BESYLATE 10 MG TABLET (FP) PO SCH (18:14)
[2021-03-23] MEDS: PANTOPRAZOLE 40 MG TABLET PO SCH (18:14)
[2021-03-23] MEDS: ASPIRIN 81 MG CHEWABLE TABLETS PO SCH (18:15)
[2021-03-23] MEDS: GABAPENTIN 100 MG CAPSULE PO SCH (21:38)
[2021-03-23] MEDS: FLUoxetine HCL 20 MG CAPSULE PO SCH (21:39)
[2021-03-23] MEDS: BACITRACIN 15 GM TUBE TOPICAL OINTMENT TP SCH (21:39)
[2021-03-24] MEDS ORDERED: PT OWN MED DRAWER 7, Y5N ONE ×2 (06:10→16:23)
[2021-03-24] MEDS: HEPARIN NA (PORCINE) 5,000 UNITS/ML 1ML VIAL SQ SCH ×2 (06:14→17:08)
[2021-03-24] MEDS: FLUoxetine HCL 20 MG CAPSULE PO SCH ×3 (06:15→23:15)
[2021-03-24] MEDS: INSULIN SLIDING SCALE (NOVOLOG) 1 VIAL SQ SCH ×4 (06:15→23:14)
[2021-03-24 09:23] LABS: BASO % 0.9 % (0-2.0); EOS % 1.9 % (0-4.5); HEMATOCRIT 29.1 % (35.4-49); HEMOGLOBIN 9.4 GM/dL (11.7-16.9); LYMPH % 7.2 % (8-40); MCH 24.8 pg (25.7-33.7); MCHC 32.3 g/dl (32.0-35.9); MEAN CELL VOLUME 76.7 fl (80-96); MEAN PLT VOLUME 7.9 fl (7.5-11.1); MONO % 7.8 % (3.8-10.2); NEUT % 82.2 % (42.8-82.8); PLATELET COUNT 387 10^3/uL (134-434); RBC 3.79 M/mm3 (4.00-5.60); RDW 18.4 % (11.9-15.9); WHITE BLOOD COUNT 8.6 K/mm3 (4.0-10.0)
[2021-03-24 10:10] LABS: ALBUMIN 1.6 g/dl (3.4-5.0); BLOOD UREA NITROGEN 32.4 mg/dL (7-18); CALCIUM 8.1 mg/dL (8.5-10.1); MAGNESIUM 2.2 mg/dL (1.8-2.4)
[2021-03-24 10:14] LABS: BILIRUBIN,TOTAL 0.6 mg/dL (0.2-1); TOT PROT 5.9 g/dl (6.4-8.2)
[2021-03-24] MEDS: BACITRACIN 15 GM TUBE TOPICAL OINTMENT TP SCH ×2 (12:17→23:14)
[2021-03-24] MEDS: GABAPENTIN 100 MG CAPSULE PO SCH ×3 (13:34→23:14)
[2021-03-24] MEDS ORDERED: SODIUM CHLORIDE 1,000 ML IV STA (14:38)
[2021-03-24 14:51] VITALS: BMI 31.9
[2021-03-24] MEDS: amLODIPine BESYLATE 10 MG TABLET (FP) PO SCH (16:21)
[2021-03-24] MEDS: PANTOPRAZOLE 40 MG TABLET PO SCH (16:22)
[2021-03-24] MEDS: ASPIRIN 81 MG CHEWABLE TABLETS PO SCH (16:22)
[2021-03-24] MEDS: MULTIVITAMINS (DAILY MVI) TABLET (FP) PO SCH (18:40)
[2021-03-25 02:20] LABS: EPI CELLS 22 /uL (0-25.1); HYALINE CASTS 3 /uL (0-3.1); URINE APPEARANCE TURBID; URINE BILIRUBIN NEGATIVE (NEGATIVE); URINE COLOR YELLOW; URINE GLUCOSE (UA) NEGATIVE (NEGATIVE); URINE KETONE TRACE (NEGATIVE); URINE LEUK ESTERASE 2+ (NEGATIVE); URINE NITRITE NEGATIVE (NEGATIVE); URINE PROTEIN 1+ (NEGATIVE); URINE UROBILINOGEN 0.2 mg/dL (0.2-1.0); URINE WBC 238 /uL (0-25.8)
[2021-03-25] MEDS ORDERED: PT OWN MED DRAWER 7, Y5N ONE ×2 (06:00→13:59)
[2021-03-25] MEDS: FLUoxetine HCL 20 MG CAPSULE PO SCH ×2 (06:08→14:02)
[2021-03-25] MEDS: INSULIN SLIDING SCALE (NOVOLOG) 1 VIAL SQ SCH ×3 (06:09→17:02)
[2021-03-25 08:47] LABS: URINE CRYSTALS MANY URIC ACID CRYST /hpf; URINE RBC MANY /uL (0-23.9)
[2021-03-25 08:48] LABS: URINE BACTERIA MODERATE /uL (0-1359)
[2021-03-25] MEDS: BACITRACIN 15 GM TUBE TOPICAL OINTMENT TP SCH (11:07)
[2021-03-25] MEDS: MULTIVITAMINS (DAILY MVI) TABLET (FP) PO SCH (11:08)
[2021-03-25] MEDS: PANTOPRAZOLE 40 MG TABLET PO SCH (11:08)
[2021-03-25] MEDS: GABAPENTIN 100 MG CAPSULE PO SCH (11:08)
[2021-03-25] MEDS: ASPIRIN 81 MG CHEWABLE TABLETS PO SCH (11:08)
[2021-03-25] MEDS: amLODIPine BESYLATE 10 MG TABLET (FP) PO SCH (11:09)
[2021-03-25 19:40] LABS: BASO % 0.3 % (0-2.0); HEMATOCRIT 30.1 % (35.4-49); HEMOGLOBIN 9.6 GM/dL (11.7-16.9); LYMPH % 6.9 % (8-40); MCH 24.9 pg (25.7-33.7); MCHC 31.8 g/dl (32.0-35.9); MEAN CELL VOLUME 78.5 fl (80-96); MONO % 8.5 % (3.8-10.2); NEUT % 81.3 % (42.8-82.8); PLATELET COUNT 466 10^3/uL (134-434); RBC 3.84 M/mm3 (4.00-5.60); RDW 18.5 % (11.9-15.9); WHITE BLOOD COUNT 9.6 K/mm3 (4.0-10.0)
[2021-03-25 20:02] LABS: ALBUMIN 1.8 g/dl (3.4-5.0); CALCIUM 8.4 mg/dL (8.5-10.1); MAGNESIUM 2.3 mg/dL (1.8-2.4)
[2021-03-25 20:06] LABS: CREATININE 2.3 mg/dL (0.55-1.3)
[2021-03-25 20:07] LABS: BILIRUBIN,TOTAL 0.4 mg/dL (0.2-1); TOT PROT 6.1 g/dl (6.4-8.2)
[2021-03-26] MEDS ORDERED: PT OWN MED DRAWER 7, Y5N ONE ×5 (00:43→21:02)
[2021-03-26] MEDS: BACITRACIN 15 GM TUBE TOPICAL OINTMENT TP SCH ×3 (00:46→21:12)
[2021-03-26] MEDS: FLUoxetine HCL 20 MG CAPSULE PO SCH ×4 (00:46→21:12)
[2021-03-26] MEDS: GABAPENTIN 100 MG CAPSULE PO SCH ×3 (00:46→21:11)
[2021-03-26] MEDS: INSULIN SLIDING SCALE (NOVOLOG) 1 VIAL SQ SCH ×5 (00:50→21:12)
[2021-03-26] MEDS: MULTIVITAMINS (DAILY MVI) TABLET (FP) PO SCH (09:59)
[2021-03-26] MEDS: ASPIRIN 81 MG CHEWABLE TABLETS PO SCH (09:59)
[2021-03-26] MEDS: PANTOPRAZOLE 40 MG TABLET PO SCH (09:59)
[2021-03-26] MEDS: amLODIPine BESYLATE 10 MG TABLET (FP) PO SCH (09:59)
[2021-03-26] MEDS ORDERED: FUROSEMIDE 40 MG TABLET (FP) PO ONE (13:32)
[2021-03-26] MEDS ORDERED: amLODIPine BESYLATE 5 MG TABLET (FP) PO SCH (13:32)
[2021-03-26 18:00] LABS: BASO % 0.2 % (0-2.0); EOS % 0.8 % (0-4.5); HEMATOCRIT 32.3 % (35.4-49); HEMOGLOBIN 10.2 GM/dL (11.7-16.9); LYMPH % 3.6 % (8-40); MCH 24.6 pg (25.7-33.7); MCHC 31.5 g/dl (32.0-35.9); MEAN PLT VOLUME 8.1 fl (7.5-11.1); NEUT % 88.4 % (42.8-82.8); PLATELET COUNT 518 10^3/uL (134-434); RBC 4.14 M/mm3 (4.00-5.60); RDW 18.5 % (11.9-15.9); WHITE BLOOD COUNT 11.6 K/mm3 (4.0-10.0)
[2021-03-26 18:11] LABS: CALCIUM 8.5 mg/dL (8.5-10.1)
[2021-03-26 18:12] LABS: ALBUMIN 1.9 g/dl (3.4-5.0); BLOOD UREA NITROGEN 36.6 mg/dL (7-18); MAGNESIUM 2.3 mg/dL (1.8-2.4)
[2021-03-26 18:15] LABS: CREATININE 2.4 mg/dL (0.55-1.3)
[2021-03-26 18:16] LABS: BILIRUBIN,TOTAL 0.4 mg/dL (0.2-1); TOT PROT 6.5 g/dl (6.4-8.2)
[2021-03-26] MEDS ORDERED: INSULIN (NOVOLOG) ASPART 100 UNITS/ML 10ML VIAL ONE (21:02)
[2021-03-27 06:22] VITALS: BP 114/51; PULSE 74; TEMP 97.7
[2021-03-27] MEDS ORDERED: PT OWN MED DRAWER 7, Y5N ONE ×2 (06:50→13:01)
[2021-03-27] MEDS: FLUoxetine HCL 20 MG CAPSULE PO SCH ×2 (06:51→13:09)
[2021-03-27] MEDS: INSULIN SLIDING SCALE (NOVOLOG) 1 VIAL SQ SCH ×2 (06:54→11:01)
[2021-03-27 07:27] LABS: BASO % 0.8 % (0-2.0); EOS % 2.5 % (0-4.5); HEMATOCRIT 31.7 % (35.4-49); LYMPH % 8.8 % (8-40); MCH 24.7 pg (25.7-33.7); MCHC 31.5 g/dl (32.0-35.9); MEAN CELL VOLUME 78.6 fl (80-96); MONO % 7.9 % (3.8-10.2); PLATELET COUNT 487 10^3/uL (134-434); RBC 4.04 M/mm3 (4.00-5.60); RDW 18.1 % (11.9-15.9); WHITE BLOOD COUNT 9.4 K/mm3 (4.0-10.0)
[2021-03-27 07:53] LABS: CALCIUM 8.3 mg/dL (8.5-10.1)
[2021-03-27 07:54] LABS: ALBUMIN 1.8 g/dl (3.4-5.0); BLOOD UREA NITROGEN 33.8 mg/dL (7-18)
[2021-03-27 07:58] LABS: BILIRUBIN,TOTAL 0.4 mg/dL (0.2-1); TOT PROT 6.1 g/dl (6.4-8.2)
[2021-03-27] MEDS ORDERED: INSULIN (NOVOLOG) ASPART 100 UNITS/ML 10ML VIAL ONE (10:03)
[2021-03-27] MEDS: GABAPENTIN 100 MG CAPSULE PO SCH (10:48)
[2021-03-27] MEDS: ASPIRIN 81 MG CHEWABLE TABLETS PO SCH (10:48)
[2021-03-27] MEDS: BACITRACIN 15 GM TUBE TOPICAL OINTMENT TP SCH (10:48)
[2021-03-27] MEDS: PANTOPRAZOLE 40 MG TABLET PO SCH (10:48)
[2021-03-27] MEDS: MULTIVITAMINS (DAILY MVI) TABLET (FP) PO SCH (10:48)
[2021-03-27] MEDS ORDERED: FUROSEMIDE 40 MG TABLET (FP) PO SCH (13:30)
== END 2021-03-27 16:40 | DRG 683 ==
LOC: JER 15:22 → JERBED 19:23 → J7W 23:53
PROVIDERS: ADMIT Internal Medicine; ATTEND Nurse Practitioner Family
DX: N17.9 Acute kidney failure, unspecified (principal); C22.0 Liver cell carcinoma; R18.8 Other ascites; J90 Pleural effusion, not elsewhere classified; N18.30 Chronic kidney disease, stage 3 unspecified; I73.9 Peripheral vascular disease, unspecified; E11.51 Type 2 diabetes mellitus with diabetic peripheral angiopathy without gangrene; E11.621 Type 2 diabetes mellitus with foot ulcer; I12.9 Hypertensive chronic kidney disease with stage 1 through stage 4 chronic kidney disease, or unspecified chronic kidney disease; E11.22 Type 2 diabetes mellitus with diabetic chronic kidney disease
CPT/HCPCS: 36415; 71045-TC-FY; 76700-TC; 80048; 80053; 81003; 82140; 82272; 82436; 82550; 82553; 82570; 82962; 83540; 83550; 83735; 83880; 83935; 84100; 84133; 84300; 84436; 84443; 84484; 85025; 85045; 85610; 85730; 86850; 86900; 86901; 87040; 87086; 87186; 93005; 93010; 93306-TC; 97116-GP; 97162-GP; 99285-25; C9803; J1644; U0003; U0005

== ENCOUNTER 2022-01-06 09:07 | Emergency (ER) | payer OTHER ==
[2022-01-06 10:03] VITALS: RESP 18; BMI 31.3
[2022-01-06] MEDS ORDERED: DIPHTH,PERTUSS(ACELL),TET 0.5 ML DISP.SYRIN IM ONE ×2 (10:32→11:04)
[2022-01-06] MEDS ORDERED: BACITRACIN 15 GM TUBE TOPICAL OINTMENT TP ONE (13:58)
[2022-01-06] MEDS ORDERED: BACITRACIN 15 GM TUBE TOPICAL OINTMENT ONE (14:06)
[2022-01-06 14:28] VITALS: BP 125/70; PULSE 60; TEMP 97.6
== END 2022-01-06 14:28 | disposition home or self-care (01) ==
LOC: JER 09:07
PROC: 0HQLXZZ Repair Left Lower Leg Skin, External Approach (ICD-10-PCS; principal; 2022-01-06)
PROC: 3E0234Z Introduction of Serum, Toxoid and Vaccine into Muscle, Percutaneous Approach (ICD-10-PCS; 2022-01-06)
DX: S81.812A Laceration without foreign body, left lower leg, initial encounter (principal)
CPT/HCPCS: 12001-25; 90471; 90715; 99284-25

== ENCOUNTER 2022-01-16 12:06 | Inpatient (IN) | payer OTHER ==
[2022-01-16 12:16] VITALS: BMI 31.9
[2022-01-16] MEDS ORDERED: PIPERACILLIN/TAZOB 4.5 GM 4.5 GM in DEXTROSE 5%-WATER 100 ML IVPB ONE (13:22)
[2022-01-16] MEDS ORDERED: VANCOMYCIN 1 GM in D5W (PRE-DOCKED) 1,000 MG/250 ML IVPB ONE (13:23)
[2022-01-16 14:00] LABS: BASO % 0.4 % (0-2.0); HEMATOCRIT 29.4 % (35.4-49); HEMOGLOBIN 9.6 GM/dL (11.7-16.9); LYMPH % 12.6 % (8-40); MCH 29.9 pg (25.7-33.7); MCHC 32.6 g/dl (32.0-35.9); MEAN CELL VOLUME 91.6 fl (80-96); MEAN PLT VOLUME 7.8 fl (7.5-11.1); MONO % 10.1 % (3.8-10.2); NEUT % 71.9 % (42.8-82.8); PLATELET COUNT 263 10^3/uL (134-434); RBC 3.21 M/mm3 (4.00-5.60); RDW 13.4 % (11.9-15.9); WHITE BLOOD COUNT 7.3 K/mm3 (4.0-10.0)
[2022-01-16 14:15] LABS: INR 1.11 (0.83-1.09); PROTHROMBIN TIME (PATIENT) 12.8 SEC (9.7-13.0)
[2022-01-16 14:22] LABS: ALBUMIN 3.4 g/dl (3.4-5.0); CALCIUM 8.6 mg/dL (8.5-10.1)
[2022-01-16 14:23] LABS: BLOOD UREA NITROGEN 37.9 mg/dL (7-18)
[2022-01-16 14:25] LABS: CREATININE 1.4 mg/dL (0.55-1.3)
[2022-01-16 14:27] LABS: BILIRUBIN,TOTAL 0.5 mg/dL (0.2-1); TOT PROT 6.7 g/dl (6.4-8.2)
[2022-01-16] MEDS ORDERED: SODIUM CHLORIDE 1,000 ML IV SCH (16:30)
[2022-01-16] MEDS ORDERED: PIPERACILLIN/TAZOB 2.25 GM 2.25 GM in DEXTROSE 5%-WATER - 50 ML IVPB SCH (18:00)
[2022-01-16] MEDS: INSULIN SLIDING SCALE (NOVOLOG) 1 VIAL SQ SCH ×2 (18:09→21:37)
[2022-01-16] MEDS: PIPERACILLIN/TAZOB 2.25 GM 2.25 GM in DEXTROSE 5%-WATER - 50 ML IVPB SCH (18:10)
[2022-01-16 18:43] LABS: PH,URINE 5.5 (5.0-8.0); URINE APPEARANCE CLEAR; URINE BILIRUBIN NEGATIVE (NEGATIVE); URINE COLOR YELLOW; URINE GLUCOSE (UA) NEGATIVE (NEGATIVE); URINE KETONE NEGATIVE (NEGATIVE); URINE LEUK ESTERASE NEGATIVE (NEGATIVE); URINE NITRITE NEGATIVE (NEGATIVE); URINE PROTEIN NEGATIVE (NEGATIVE); URINE UROBILINOGEN 0.2 mg/dL (0.2-1.0)
[2022-01-16] MEDS: GABAPENTIN 100 MG CAPSULE PO SCH (21:29)
[2022-01-16] MEDS: HEPARIN NA (PORCINE) 5,000 UNITS/ML 1ML VIAL SQ SCH (21:29)
[2022-01-16] MEDS: FLUoxetine HCL 10 MG CAPSULE PO SCH (21:29)
[2022-01-16] MEDS: NYSTATIN POWDER 100,000 UNITS/GM - 15 GM TOPICAL POWDER TP SCH (22:51)
[2022-01-17] MEDS: PIPERACILLIN/TAZOB 2.25 GM 2.25 GM in DEXTROSE 5%-WATER - 50 ML IVPB SCH ×4 (01:23→18:53)
[2022-01-17] MEDS: HEPARIN NA (PORCINE) 5,000 UNITS/ML 1ML VIAL SQ SCH ×3 (06:11→21:06)
[2022-01-17] MEDS: INSULIN SLIDING SCALE (NOVOLOG) 1 VIAL SQ SCH ×4 (06:22→21:06)
[2022-01-17 09:08] LABS: BASO % 0.6 % (0-2.0); EOS % 6.5 % (0-4.5); HEMATOCRIT 32.8 % (35.4-49); HEMOGLOBIN 10.7 GM/dL (11.7-16.9); LYMPH % 14.4 % (8-40); MCHC 32.7 g/dl (32.0-35.9); MEAN CELL VOLUME 91.7 fl (80-96); MEAN PLT VOLUME 7.9 fl (7.5-11.1); MONO % 9.3 % (3.8-10.2); NEUT % 69.2 % (42.8-82.8); PLATELET COUNT 304 10^3/uL (134-434); RBC 3.58 M/mm3 (4.00-5.60); RDW 13.4 % (11.9-15.9)
[2022-01-17 09:14] LABS: INR 1.12 (0.83-1.09); PROTHROMBIN TIME (PATIENT) 12.9 SEC (9.7-13.0)
[2022-01-17 09:16] LABS: ACTIVATED PTT 34.3 SECONDS (25.2-36.5)
[2022-01-17] MEDS: ASPIRIN 81 MG CHEWABLE TABLETS PO SCH (09:20)
[2022-01-17] MEDS: GABAPENTIN 100 MG CAPSULE PO SCH ×2 (09:20→21:06)
[2022-01-17] MEDS: FLUoxetine HCL 10 MG CAPSULE PO SCH ×2 (09:20→21:06)
[2022-01-17] MEDS: TORSEMIDE 20 MG TABLET (FP) PO SCH (09:20)
[2022-01-17] MEDS: amLODIPine BESYLATE 5 MG TABLET (FP) PO SCH (09:21)
[2022-01-17] MEDS: NYSTATIN POWDER 100,000 UNITS/GM - 15 GM TOPICAL POWDER TP SCH (09:25)
[2022-01-17 09:58] LABS: ALBUMIN 3.2 g/dl (3.4-5.0)
[2022-01-17 09:59] LABS: BLOOD UREA NITROGEN 31.3 mg/dL (7-18)
[2022-01-17 10:00] LABS: TOT PROT 6.7 g/dl (6.4-8.2)
[2022-01-17] MEDS ORDERED: VANCOMYCIN 1 GM/200 ML PREMIX BAG IVPB SCH ×2 (10:00)
[2022-01-17 10:02] LABS: CALCIUM 8.7 mg/dL (8.5-10.1)
[2022-01-17 10:03] LABS: BILIRUBIN,TOTAL 0.3 mg/dL (0.2-1)
[2022-01-17 10:06] LABS: CREATININE 1.4 mg/dL (0.55-1.3); MAGNESIUM 2.3 mg/dL (1.8-2.4); PHOSPHOROUS 3.1 mg/dL (2.5-4.9)
[2022-01-17] MEDS: DOXYCYCLINE HYCLATE 100 MG CAPSULE PO SCH (18:26)
[2022-01-17] MEDS ORDERED: INSULIN (NOVOLOG) ASPART 100 UNITS/ML 10ML VIAL ONE (20:44)
[2022-01-18] MEDS: PIPERACILLIN/TAZOB 2.25 GM 2.25 GM in DEXTROSE 5%-WATER - 50 ML IVPB SCH ×2 (01:08→09:24)
[2022-01-18] MEDS: HEPARIN NA (PORCINE) 5,000 UNITS/ML 1ML VIAL SQ SCH ×3 (06:01→21:24)
[2022-01-18] MEDS: INSULIN SLIDING SCALE (NOVOLOG) 1 VIAL SQ SCH ×4 (06:04→21:28)
[2022-01-18] MEDS: TORSEMIDE 20 MG TABLET (FP) PO SCH (09:26)
[2022-01-18] MEDS: DOXYCYCLINE HYCLATE 100 MG CAPSULE PO SCH ×2 (09:26→17:30)
[2022-01-18] MEDS: ASPIRIN 81 MG CHEWABLE TABLETS PO SCH (09:26)
[2022-01-18] MEDS: amLODIPine BESYLATE 5 MG TABLET (FP) PO SCH (09:26)
[2022-01-18] MEDS: GABAPENTIN 100 MG CAPSULE PO SCH ×2 (09:26→21:24)
[2022-01-18] MEDS: FLUoxetine HCL 10 MG CAPSULE PO SCH ×2 (09:29→21:28)
[2022-01-18] MEDS: NYSTATIN POWDER 100,000 UNITS/GM - 15 GM TOPICAL POWDER TP SCH (09:30)
[2022-01-18] MEDS: CEFAZOLIN 1 GM in DEXTROSE 5%-WATER 100 ML IVPB SCH ×2 (12:45→17:30)
[2022-01-18] MEDS ORDERED: ceFAZolin SODIUM 1 GM VIAL ONE (16:52)
[2022-01-18] MEDS: ASCORBIC ACID 500 MG TABLET (FP) PO SCH (21:24)
[2022-01-19] MEDS: CEFAZOLIN 1 GM in DEXTROSE 5%-WATER 100 ML IVPB SCH ×2 (03:03→09:22)
[2022-01-19] MEDS: INSULIN SLIDING SCALE (NOVOLOG) 1 VIAL SQ SCH ×2 (06:21→11:17)
[2022-01-19] MEDS: HEPARIN NA (PORCINE) 5,000 UNITS/ML 1ML VIAL SQ SCH ×2 (06:22→13:44)
[2022-01-19] MEDS: TORSEMIDE 20 MG TABLET (FP) PO SCH (09:22)
[2022-01-19] MEDS: amLODIPine BESYLATE 5 MG TABLET (FP) PO SCH (09:22)
[2022-01-19] MEDS: ASCORBIC ACID 500 MG TABLET (FP) PO SCH (09:22)
[2022-01-19] MEDS: DOXYCYCLINE HYCLATE 100 MG CAPSULE PO SCH (09:22)
[2022-01-19] MEDS: GABAPENTIN 100 MG CAPSULE PO SCH (09:23)
[2022-01-19] MEDS: NYSTATIN POWDER 100,000 UNITS/GM - 15 GM TOPICAL POWDER TP SCH (09:23)
[2022-01-19] MEDS: ASPIRIN 81 MG CHEWABLE TABLETS PO SCH (09:23)
[2022-01-19 09:38] VITALS: RESP 18
[2022-01-19] MEDS ORDERED: MULTIVITAMINS THER W-MINERALS COMBO TABLET (FP) PO SCH (10:00)
[2022-01-19] MEDS ORDERED: PANTOPRAZOLE 40 MG TABLET PO SCH (10:00)
[2022-01-19] MEDS: FLUoxetine HCL 10 MG CAPSULE PO SCH (10:34)
[2022-01-19 11:24] LABS: BASO % 0.3 % (0-2.0); EOS % 6.1 % (0-4.5); HEMATOCRIT 32.4 % (35.4-49); HEMOGLOBIN 10.7 GM/dL (11.7-16.9); LYMPH % 16.9 % (8-40); MEAN CELL VOLUME 90.8 fl (80-96); MEAN PLT VOLUME 7.8 fl (7.5-11.1); MONO % 11.3 % (3.8-10.2); NEUT % 65.4 % (42.8-82.8); PLATELET COUNT 275 10^3/uL (134-434); RBC 3.57 M/mm3 (4.00-5.60); RDW 13.3 % (11.9-15.9); WHITE BLOOD COUNT 6.2 K/mm3 (4.0-10.0)
[2022-01-19 11:50] LABS: CALCIUM 8.8 mg/dL (8.5-10.1)
[2022-01-19 11:56] LABS: CREATININE 1.5 mg/dL (0.55-1.3)
[2022-01-19 14:15] VITALS: BP 121/57; PULSE 62; TEMP 97.7
== END 2022-01-19 16:18 | DRG 603 ==
LOC: JER 12:06 → JERBED 14:30 → J6S 18:46
PROVIDERS: ADMIT Internal Medicine; ATTEND Internal Medicine
DX: L03.116 Cellulitis of left lower limb (principal); S82.292A Other fracture of shaft of left tibia, initial encounter for closed fracture; N17.9 Acute kidney failure, unspecified; I12.9 Hypertensive chronic kidney disease with stage 1 through stage 4 chronic kidney disease, or unspecified chronic kidney disease; E11.22 Type 2 diabetes mellitus with diabetic chronic kidney disease; N18.30 Chronic kidney disease, stage 3 unspecified; E11.51 Type 2 diabetes mellitus with diabetic peripheral angiopathy without gangrene; D64.9 Anemia, unspecified; I25.10 Atherosclerotic heart disease of native coronary artery without angina pectoris; E11.40 Type 2 diabetes mellitus with diabetic neuropathy, unspecified; E78.00 Pure hypercholesterolemia, unspecified; H54.8 Legal blindness, as defined in USA; B95.61 Methicillin susceptible Staphylococcus aureus infection as the cause of diseases classified elsewhere; B95.1 Streptococcus, group B, as the cause of diseases classified elsewhere; L08.9 Local infection of the skin and subcutaneous tissue, unspecified; S82.492A Other fracture of shaft of left fibula, initial encounter for closed fracture; X58.XXXA Exposure to other specified factors, initial encounter; Y93.9 Activity, unspecified; Y92.9 Unspecified place or not applicable; Z89.9 Acquired absence of limb, unspecified
CPT/HCPCS: 36415; 73590-TC-LT-FY; 80048; 80053; 81003; 82962; 83036; 83735; 84100; 85025; 85610; 85730; 87040; 87070; 87077; 87086; 87186; 87205; 93971-TC; 99285-25; C9803-CS; J1644; U0003; U0005

== ENCOUNTER 2023-10-09 15:30 | Inpatient (IN) | payer OTHER ==
[2023-10-09 16:59] LABS: BASO % 0.6 % (0-2.0); EOS % 2.8 % (0-4.5); HEMATOCRIT 33.5 % (35.4-49); HEMOGLOBIN 10.9 GM/dL (11.7-16.9); LYMPH % 7.8 % (8-40); MCHC 32.5 g/dl (32.0-35.9); MEAN PLT VOLUME 8.2 fl (7.5-11.1); NEUT % 78.8 % (42.8-82.8); PLATELET COUNT 361 10^3/uL (134-434); RBC 3.77 M/mm3 (4.00-5.60); RDW 14.8 % (11.9-15.9); WHITE BLOOD COUNT 9.7 K/mm3 (4.0-10.0)
[2023-10-09 17:28] LABS: POTASSIUM 4.2 mmol/L (3.5-5.1)
[2023-10-09] MEDS ORDERED: PIPERACILLIN/TAZOB 2.25 GM 2.25 GM/50 ML BAG IVPB ONE (17:58)
[2023-10-09 18:01] LABS: URINE APPEARANCE CLEAR; URINE BILIRUBIN NEGATIVE (NEGATIVE); URINE COLOR YELLOW; URINE GLUCOSE (UA) NEGATIVE (NEGATIVE); URINE KETONE NEGATIVE (NEGATIVE); URINE LEUK ESTERASE NEGATIVE (NEGATIVE); URINE NITRITE NEGATIVE (NEGATIVE); URINE PROTEIN NEGATIVE (NEGATIVE); URINE UROBILINOGEN 0.2 mg/dL (0.2-1.0)
[2023-10-09] MEDS: PIPERACILLIN/TAZOB 2.25 GM 2.25 GM in DEXTROSE 5%-WATER - 50 ML IVPB ONE (18:07)
[2023-10-09 18:23] LABS: BLOOD UREA NITROGEN 32.9 mg/dL (7-18)
[2023-10-09 18:24] LABS: ALBUMIN 2.5 g/dl (3.4-5.0)
[2023-10-09 19:24] LABS: BILIRUBIN,TOTAL 0.9 mg/dL (0.2-1); CALCIUM 8.9 mg/dL (8.5-10.1); CREATININE 1.4 mg/dL (0.55-1.3); TOT PROT 6.4 g/dl (6.4-8.2)
[2023-10-09] MEDS ORDERED: VANCOMYCIN 1 GRAM (PRE-DOCKED) 1,000 MG/250 ML BAG IVPB ONE ×2 (19:37→21:31)
[2023-10-09] MEDS: SODIUM CHLORIDE 0.9% 500 ML INFUS.BAG IV ONE (20:02)
[2023-10-09] MEDS: VANCOMYCIN 1,000 MG in DEXTROSE 5%-WATER - 250 ML IVPB ONE (21:51)
[2023-10-10] MEDS ORDERED: ACETAMINOPHEN 325 MG TABLET (FP) PO PRN ×2 (00:53→15:09)
[2023-10-10] MEDS ORDERED: ACETAMINOPHEN 1000 MG/100 ML BAG IVPB PRN (00:59)
[2023-10-10] MEDS ORDERED: PIPERACILLIN/TAZOB 3.375 GM 3.375 GM/50 ML BAG IVPB ONE (03:05)
[2023-10-10] MEDS: PIPERACILLIN/TAZOB 3.375 GM 3.375 GM in DEXTROSE 5%-WATER - 50 ML IVPB SCH ×2 (03:16→15:23)
[2023-10-10] MEDS: INSULIN ASPART SLIDING SCALE (NOVOLOG) 1 VIAL SQ SCH (06:19)
[2023-10-10] MEDS ORDERED: VANCOMYCIN PREMIX 1.5 GM 1,500 MG/300 ML BAG IVPB SCH (09:00)
[2023-10-10] MEDS: SODIUM CHLORIDE 1,000 ML IV SCH (09:27)
[2023-10-10 09:40] LABS: BASO % 0.4 % (0-2.0); EOS % 2.8 % (0-4.5); HEMATOCRIT 31.9 % (35.4-49); HEMOGLOBIN 10.4 GM/dL (11.7-16.9); LYMPH % 5.4 % (8-40); MCH 29.1 pg (25.7-33.7); MCHC 32.7 g/dl (32.0-35.9); MEAN CELL VOLUME 88.9 fl (80-96); MEAN PLT VOLUME 8.2 fl (7.5-11.1); MONO % 9.4 % (3.8-10.2); PLATELET COUNT 377 10^3/uL (134-434); RBC 3.58 M/mm3 (4.00-5.60); RDW 14.7 % (11.9-15.9); WHITE BLOOD COUNT 11.3 K/mm3 (4.0-10.0)
[2023-10-10 09:45] LABS: INR 1.22 (0.83-1.09); PROTHROMBIN TIME (PATIENT) 13.7 SEC (9.7-13.0)
[2023-10-10 09:48] LABS: ACTIVATED PTT 32.8 SECONDS (25.2-36.5)
[2023-10-10 09:54] LABS: POTASSIUM 4.1 mmol/L (3.5-5.1)
[2023-10-10 09:56] LABS: CALCIUM 8.4 mg/dL (8.5-10.1)
[2023-10-10 09:57] LABS: BLOOD UREA NITROGEN 25.5 mg/dL (7-18); MAGNESIUM 2.1 mg/dL (1.8-2.4)
[2023-10-10 09:59] LABS: CREATININE 1.3 mg/dL (0.55-1.3); PHOSPHOROUS 2.7 mg/dL (2.5-4.9)
[2023-10-10] MEDS ORDERED: VANCOMYCIN HCL 1,500 MG in DEXTROSE 5%-WATER - 250 ML IVPB SCH (10:00)
[2023-10-10 10:57] LABS: ALBUMIN 2.3 g/dl (3.4-5.0)
[2023-10-10 11:02] LABS: TOT PROT 5.9 g/dl (6.4-8.2)
[2023-10-10 11:03] LABS: BILIRUBIN,TOTAL 0.8 mg/dL (0.2-1)
[2023-10-10] MEDS: VANCOMYCIN PREMIX 1.5 GM 1,500 MG/300 ML BAG IVPB SCH (11:37)
[2023-10-10] MEDS: NYSTATIN POWDER 100,000 UNITS/GM - 15 GM TOPICAL POWDER TP SCH (15:58)
[2023-10-10] MEDS: INSULIN (LEVEMIR) 100 UNITS/ML UNITS SQ SCH (22:49)
[2023-10-10] MEDS: GABAPENTIN 100 MG CAPSULE PO SCH (22:49)
[2023-10-10] MEDS: FLUoxetine HCL 10 MG CAPSULE PO SCH (22:52)
[2023-10-11] MEDS ORDERED: ACETAMINOPHEN 325 MG TABLET (FP) PO PRN (00:53)
[2023-10-11] MEDS: DOCUSATE SODIUM 100 MG CAPSULE (FP) PO PRN (07:19)
[2023-10-11 08:44] LABS: BLOOD UREA NITROGEN 22.6 mg/dL (7-18); CALCIUM 8.1 mg/dL (8.5-10.1); MAGNESIUM 2.1 mg/dL (1.8-2.4)
[2023-10-11 08:45] LABS: CREATININE 1.4 mg/dL (0.55-1.3)
[2023-10-11 08:47] LABS: BILIRUBIN,TOTAL 0.7 mg/dL (0.2-1); TOT PROT 5.3 g/dl (6.4-8.2)
[2023-10-11] MEDS: PANTOPRAZOLE 40 MG TABLET PO SCH (09:15)
[2023-10-11] MEDS: TORSEMIDE 20 MG TABLET (FP) PO SCH (09:15)
[2023-10-11] MEDS: ASPIRIN 81 MG CHEWABLE TABLETS PO SCH (09:15)
[2023-10-11] MEDS: POLYETHYLENE GLYCOL (HEALTHYLAX) 3350 17 GM PACKET PO SCH (21:27)
[2023-10-12 09:03] LABS: BASO % 0.4 % (0-2.0); EOS % 3.3 % (0-4.5); HEMATOCRIT 32.9 % (35.4-49); HEMOGLOBIN 10.6 GM/dL (11.7-16.9); LYMPH % 8.6 % (8-40); MCH 28.6 pg (25.7-33.7); MCHC 32.2 g/dl (32.0-35.9); MEAN CELL VOLUME 88.6 fl (80-96); MEAN PLT VOLUME 7.8 fl (7.5-11.1); MONO % 7.2 % (3.8-10.2); NEUT % 80.5 % (42.8-82.8); PLATELET COUNT 400 10^3/uL (134-434); RBC 3.71 M/mm3 (4.00-5.60); RDW 14.5 % (11.9-15.9); WHITE BLOOD COUNT 10.5 K/mm3 (4.0-10.0)
[2023-10-14 08:26] LABS: HEMATOCRIT 32.3 % (35.4-49); HEMOGLOBIN 10.6 GM/dL (11.7-16.9); MCHC 32.8 g/dl (32.0-35.9); MEAN CELL VOLUME 88.5 fl (80-96); MEAN PLT VOLUME 7.9 fl (7.5-11.1); PLATELET COUNT 372 10^3/uL (134-434); RBC 3.65 M/mm3 (4.00-5.60); RDW 14.5 % (11.9-15.9); WHITE BLOOD COUNT 9.6 K/mm3 (4.0-10.0)
[2023-10-14 08:40] LABS: POTASSIUM 4.1 mmol/L (3.5-5.1)
[2023-10-14 08:49] LABS: ALBUMIN 2.1 g/dl (3.4-5.0); BLOOD UREA NITROGEN 15.7 mg/dL (7-18); CALCIUM 8.2 mg/dL (8.5-10.1)
[2023-10-14 08:52] LABS: CREATININE 1.4 mg/dL (0.55-1.3)
[2023-10-14 08:53] LABS: BILIRUBIN,TOTAL 0.5 mg/dL (0.2-1); TOT PROT 5.5 g/dl (6.4-8.2)
[2023-10-14 10:27] LABS: ANISOCYTOSIS 0; MACROCYTOSIS 0
[2023-10-15] MEDS ORDERED: MIDAZOLAM HCL 2 MG/2 ML SINGLE DOSE VIAL ONE (07:53)
[2023-10-15] MEDS ORDERED: PROPOFOL 40 ML ONE (07:53)
[2023-10-15] MEDS ORDERED: FENTANYL CITRATE/PF 50 MCG/ML VIAL ONE ×5 (07:53→13:39)
[2023-10-15] MEDS ORDERED: LIDOCAINE HCL/PF 2% SDV 5ML VIAL ONE (07:53)
[2023-10-15] MEDS ORDERED: ROCURONIUM BROMIDE 50 MG/5 ML SYRINGE ONE (07:56)
[2023-10-15] MEDS ORDERED: SUCCINYLCHOLINE CHLORIDE 200 MG/10 ML SYRINGE ONE (07:56)
[2023-10-15] MEDS ORDERED: SUGAMMADEX SODIUM 200 MG/2 ML VIAL ONE (07:56)
[2023-10-15] MEDS ORDERED: BUPIVACAINE HCL/PF 0.25% (2.5MG/ML) 10 ML VIAL ONE (07:59)
[2023-10-15] MEDS: PIPERACILLIN/TAZOBACTAM 2.25 GM VIAL IVPB ONE (08:40)
[2023-10-15] MEDS: BUPIVACAINE HCL/PF 0.25% (2.5MG/ML) 10 ML VIAL IJ ONE (09:03)
[2023-10-15] MEDS ORDERED: KETAMINE HCL 200 MG/20 ML VIAL ONE (09:56)
[2023-10-15] MEDS ORDERED: ONDANSETRON 4 MG/2 ML VIAL ONE ×2 (11:00→15:47)
[2023-10-15] MEDS: IOHEXOL 300 MG/ML INFUS..BTL IV ONE (13:00)
[2023-10-15] MEDS ORDERED: ONDANSETRON 4 MG/2 ML VIAL IVPUSH PRN (13:34)
[2023-10-15] MEDS: ACETAMINOPHEN 1000 MG/100 ML BAG IVPB ONE (13:45)
[2023-10-15] MEDS: HYDROmorphone *PCA* 10MG/50ML DISP.SYRIN PCA SCH (13:50)
[2023-10-15] MEDS ORDERED: DOCUSATE SODIUM 100 MG CAPSULE (FP) PO PRN (13:56)
[2023-10-15] MEDS: PIPERACILLIN/TAZOB 3.375 GM 3.375 GM in DEXTROSE 5%-WATER - 50 ML IVPB SCH (16:00)
[2023-10-15] MEDS: INSULIN ASPART SLIDING SCALE (NOVOLOG) 1 VIAL SQ SCH ×3 (16:19→23:18)
[2023-10-15] MEDS: LACTATED RINGERS SOLUTION 1,000 ML IV SCH (22:34)
[2023-10-15] MEDS: POLYETHYLENE GLYCOL (HEALTHYLAX) 3350 17 GM PACKET PO SCH (22:38)
[2023-10-15] MEDS: INSULIN (LEVEMIR) 100 UNITS/ML UNITS SQ SCH (22:38)
[2023-10-15] MEDS: GABAPENTIN 100 MG CAPSULE PO SCH (22:38)
[2023-10-15] MEDS: FLUoxetine HCL 10 MG CAPSULE PO SCH (23:13)
[2023-10-16] MEDS: PIPERACILLIN/TAZOB 4.5 GM 4.5 GM in DEXTROSE 5%-WATER 100 ML IVPB SCH (01:01)
[2023-10-16 06:54] LABS: HEMATOCRIT 36.5 % (35.4-49); HEMOGLOBIN 11.4 GM/dL (11.7-16.9); MCH 28.1 pg (25.7-33.7); MCHC 31.2 g/dl (32.0-35.9); MEAN CELL VOLUME 90.2 fl (80-96); PLATELET COUNT 522 10^3/uL (134-434); RBC 4.05 M/mm3 (4.00-5.60); RDW 14.6 % (11.9-15.9)
[2023-10-16 07:00] LABS: WHITE BLOOD COUNT 33.9 K/mm3 (4.0-10.0)
[2023-10-16 07:06] LABS: POTASSIUM 4.5 mmol/L (3.5-5.1)
[2023-10-16 07:08] LABS: BLOOD UREA NITROGEN 22.5 mg/dL (7-18); CALCIUM 7.7 mg/dL (8.5-10.1); MAGNESIUM 1.9 mg/dL (1.8-2.4)
[2023-10-16 07:11] LABS: BILIRUBIN,DIRECT 0.8 mg/dL (0.0-0.2); CREATININE 1.8 mg/dL (0.55-1.3)
[2023-10-16 07:13] LABS: BILIRUBIN,TOTAL 0.9 mg/dL (0.2-1); TOT PROT 5.4 g/dl (6.4-8.2)
[2023-10-16 08:50] LABS: ANISOCYTOSIS 0; MACROCYTOSIS 0
[2023-10-16] MEDS: TORSEMIDE 20 MG TABLET (FP) PO SCH (10:12)
[2023-10-16] MEDS: TRIMETHOBENZAMIDE HCL 200MG/2ML INJ IM ONE (10:12)
[2023-10-16] MEDS: PANTOPRAZOLE 40 MG TABLET PO SCH (10:13)
[2023-10-16] MEDS: ASPIRIN 81 MG CHEWABLE TABLETS PO SCH (12:21)
[2023-10-16] MEDS: NYSTATIN POWDER 100,000 UNITS/GM - 15 GM TOPICAL POWDER TP SCH (13:22)
[2023-10-16] MEDS: HEPARIN NA (PORCINE) 5,000 UNITS/ML 1ML VIAL SQ SCH (13:57)
[2023-10-16] MEDS: LACTATED RINGERS SOLUTION 1000 ML INFUS.BAG IV ONE (15:00)
[2023-10-16] MEDS: VANCOMYCIN/WATER FOR INJ (PEG) 1,000 MG/200 ML BAG IVPB ONE (16:18)
[2023-10-16] MEDS: MEROPENEM 2 GM in DEXTROSE 5%-WATER - 100 ML IVPB SCH (17:20)
[2023-10-16] MEDS: ACETAMINOPHEN 325 MG TABLET (FP) PO PRN (21:31)
[2023-10-17] MEDS: MEROPENEM IVPB SCH (06:27)
[2023-10-17] MEDS: SODIUM CHLORIDE IVPB SCH (06:27)
[2023-10-17] MEDS ORDERED: INSULIN (LEVEMIR) 100 UNITS/ML UNITS SQ ONE (06:44)
[2023-10-17 07:03] LABS: HEMATOCRIT 30.1 % (35.4-49); HEMOGLOBIN 9.5 GM/dL (11.7-16.9); MCH 28.2 pg (25.7-33.7); MCHC 31.5 g/dl (32.0-35.9); MEAN CELL VOLUME 89.5 fl (80-96); MEAN PLT VOLUME 8.1 fl (7.5-11.1); PLATELET COUNT 389 10^3/uL (134-434); RBC 3.37 M/mm3 (4.00-5.60); RDW 14.7 % (11.9-15.9); WHITE BLOOD COUNT 21.1 K/mm3 (4.0-10.0)
[2023-10-17 07:22] LABS: BLOOD UREA NITROGEN 36.4 mg/dL (7-18); CALCIUM 7.7 mg/dL (8.5-10.1)
[2023-10-17 07:23] LABS: ALBUMIN 1.7 g/dl (3.4-5.0); MAGNESIUM 2.1 mg/dL (1.8-2.4)
[2023-10-17 07:27] LABS: BILIRUBIN,TOTAL 1.2 mg/dL (0.2-1); TOT PROT 4.9 g/dl (6.4-8.2)
[2023-10-17 10:01] LABS: ANISOCYTOSIS 0; MACROCYTOSIS 0
[2023-10-17] MEDS: ACETAMINOPHEN 325 MG TABLET (FP) PO PRN (10:28)
[2023-10-17 16:20] VITALS: BMI 31.9
[2023-10-17 19:41] LABS: EPI CELLS 10 /uL (0-25.1); HYALINE CASTS 2 /uL (0-3.1); PH,URINE 5.5 (5.0-8.0); URINE APPEARANCE CLOUDY; URINE BACTERIA 7 /uL (0-1359); URINE BILIRUBIN NEGATIVE (NEGATIVE); URINE COLOR DK YELLOW; URINE GLUCOSE (UA) NEGATIVE (NEGATIVE); URINE KETONE TRACE (NEGATIVE); URINE LEUK ESTERASE NEGATIVE (NEGATIVE); URINE NITRITE NEGATIVE (NEGATIVE); URINE PROTEIN 2+ (NEGATIVE); URINE RBC 2000 /uL (0-23.9); URINE WBC 45 /uL (0-25.8)
[2023-10-17] MEDS: MEROPENEM 2 GM in SODIUM CHLORIDE 100 ML IVPB SCH (20:18)
[2023-10-18 06:55] LABS: BASO % 0.2 % (0-2.0); EOS % 1.6 % (0-4.5); HEMATOCRIT 27.9 % (35.4-49); HEMOGLOBIN 8.8 GM/dL (11.7-16.9); MCH 28.1 pg (25.7-33.7); MCHC 31.4 g/dl (32.0-35.9); MEAN CELL VOLUME 89.6 fl (80-96); MEAN PLT VOLUME 7.6 fl (7.5-11.1); MONO % 5.6 % (3.8-10.2); NEUT % 87.6 % (42.8-82.8); PLATELET COUNT 318 10^3/uL (134-434); RBC 3.11 M/mm3 (4.00-5.60); RDW 14.8 % (11.9-15.9); WHITE BLOOD COUNT 14.8 K/mm3 (4.0-10.0)
[2023-10-18 07:09] LABS: INR 1.31 (0.83-1.09); PROTHROMBIN TIME (PATIENT) 14.9 SEC (9.7-13.0)
[2023-10-18 07:13] LABS: POTASSIUM 3.9 mmol/L (3.5-5.1)
[2023-10-18 07:18] LABS: BLOOD UREA NITROGEN 31.7 mg/dL (7-18); CALCIUM 7.8 mg/dL (8.5-10.1)
[2023-10-18 07:19] LABS: ALBUMIN 1.7 g/dl (3.4-5.0)
[2023-10-18 07:21] LABS: BILIRUBIN,DIRECT 0.7 mg/dL (0.0-0.2)
[2023-10-18 07:22] LABS: CREATININE 1.8 mg/dL (0.55-1.3)
[2023-10-18 07:23] LABS: BILIRUBIN,TOTAL 0.9 mg/dL (0.2-1); TOT PROT 4.9 g/dl (6.4-8.2)
[2023-10-18] MEDS ORDERED: FENTANYL CITRATE/PF 50 MCG/ML VIAL ONE (13:16)
[2023-10-18] MEDS ORDERED: MIDAZOLAM HCL 2 MG/2 ML SINGLE DOSE VIAL ONE (13:16)
[2023-10-18 20:45] VITALS: RESP 20; TEMP 98.8
[2023-10-18 22:05] VITALS: BP 134/59; PULSE 73
== END 2023-10-18 23:40 | disposition short-term general hospital (02) | DRG 982 ==
LOC: JER 15:30 → JERBED 10-10 00:56 → J6S 10-10 04:09 → JICU 10-15 18:34
PROVIDERS: ADMIT Internal Medicine; ATTEND Internal Medicine
PROC: 0FJ44ZZ Inspection of Gallbladder, Percutaneous Endoscopic Approach (ICD-10-PCS; 2023-10-15)
PROC: BF522Z0 Other Imaging of Gallbladder using Fluorescing Agent, Intraoperative (ICD-10-PCS; 2023-10-15)
PROC: 0FT40ZZ Resection of Gallbladder, Open Approach (ICD-10-PCS; principal; 2023-10-15 08:00)
PROC: 0F7D8DZ Dilation of Pancreatic Duct with Intraluminal Device, Via Natural or Artificial Opening Endoscopic (ICD-10-PCS; 2023-10-18)
PROC: 0FPD8DZ Removal of Intraluminal Device from Pancreatic Duct, Via Natural or Artificial Opening Endoscopic (ICD-10-PCS; 2023-10-18)
DX: N49.2 Inflammatory disorders of scrotum (principal); K80.00 Calculus of gallbladder with acute cholecystitis without obstruction; N17.9 Acute kidney failure, unspecified; K91.89 Other postprocedural complications and disorders of digestive system; K82.A1 Gangrene of gallbladder in cholecystitis; N43.3 Hydrocele, unspecified; Z89.511 Acquired absence of right leg below knee; H54.3 Unqualified visual loss, both eyes; K83.9 Disease of biliary tract, unspecified; E11.40 Type 2 diabetes mellitus with diabetic neuropathy, unspecified; L72.3 Sebaceous cyst; I12.9 Hypertensive chronic kidney disease with stage 1 through stage 4 chronic kidney disease, or unspecified chronic kidney disease; E11.22 Type 2 diabetes mellitus with diabetic chronic kidney disease; N18.30 Chronic kidney disease, stage 3 unspecified; Z85.05 Personal history of malignant neoplasm of liver; S30.813A Abrasion of scrotum and testes, initial encounter; X83.8XXA Intentional self-harm by other specified means, initial encounter; Y93.9 Activity, unspecified; Y92.9 Unspecified place or not applicable; Y99.9 Unspecified external cause status; Y83.8 Other surgical procedures as the cause of abnormal reaction of the patient, or of later complication, without mention of misadventure at the time of the procedure; Z53.31 Laparoscopic surgical procedure converted to open procedure
CPT/HCPCS: 36415; 74177-TC; 74181-TC; 76000-TC-FY; 76705-TC; 76775-TC; 76870-TC; 78226-TC; 80048; 80053; 80076; 81003; 82570; 82962; 82977; 83036; 83735; 84100; 84300; 84443; 84484; 85025; 85610; 85730; 86140; 86850; 86900; 86901; 87040; 87070; 87075; 87086; 87205; 87491; 87591; 87635; 88304-TC; 93005; 93010; 94760; 97162-GP; 99285-25; A9537; G0480; J0131; J1644; Q9967

== ENCOUNTER 2024-02-19 20:05 | Emergency (ER) | payer OTHER ==
[2024-02-19 20:21] VITALS: RESP 18; BMI 30.4
[2024-02-19] MEDS ORDERED: ACETAMINOPHEN INJECTION 100 ML ONE (21:36)
[2024-02-19 21:52] LABS: BASO % 0.6 % (0-2.0); HEMATOCRIT 31.6 % (35.4-49); HEMOGLOBIN 10.3 GM/dL (11.7-16.9); LYMPH % 12.4 % (8-40); MCH 28.7 pg (25.7-33.7); MCHC 32.5 g/dl (32.0-35.9); MEAN CELL VOLUME 88.3 fl (80-96); MEAN PLT VOLUME 8.4 fl (7.5-11.1); MONO % 13.1 % (3.8-10.2); NEUT % 70.9 % (42.8-82.8); PLATELET COUNT 175 10^3/uL (134-434); RBC 3.57 M/mm3 (4.00-5.60); RDW 16.4 % (11.9-15.9); WHITE BLOOD COUNT 6.3 K/mm3 (4.0-10.0)
[2024-02-19] MEDS: ACETAMINOPHEN 1000 MG/100 ML BAG IVPB ONE (21:56)
[2024-02-19 22:01] LABS: INR 1.13 (0.83-1.09); PROTHROMBIN TIME (PATIENT) 12.7 SEC (9.7-13.0)
[2024-02-19 22:03] LABS: ACTIVATED PTT 35.4 SECONDS (25.2-36.5)
[2024-02-19 22:16] LABS: POTASSIUM 4.3 mmol/L (3.5-5.1)
[2024-02-19 22:18] LABS: ALBUMIN 2.7 g/dl (3.4-5.0); BLOOD UREA NITROGEN 20.3 mg/dL (7-18); CALCIUM 8.5 mg/dL (8.5-10.1); MAGNESIUM 2.2 mg/dL (1.8-2.4)
[2024-02-19 22:21] LABS: CREATININE 1.2 mg/dL (0.55-1.3)
[2024-02-19 22:23] LABS: BILIRUBIN,TOTAL 0.5 mg/dL (0.2-1); TOT PROT 6.2 g/dl (6.4-8.2)
[2024-02-19] MEDS: SODIUM CHLORIDE 0.9% 500 ML INFUS.BAG IV ONE (22:34)
[2024-02-20 04:53] VITALS: BP 148/72; PULSE 64; TEMP 97.8
== END 2024-02-20 06:55 | disposition home or self-care (01) ==
LOC: JER 20:05
PROC: 3E033NZ Introduction of Analgesics, Hypnotics, Sedatives into Peripheral Vein, Percutaneous Approach (ICD-10-PCS; principal; 2024-02-19)
DX: S05.91XA Unspecified injury of right eye and orbit, initial encounter (principal); W06.XXXA Fall from bed, initial encounter; X50.1XXA Overexertion from prolonged static or awkward postures, initial encounter
CPT/HCPCS: 36415; 70450-TC; 70480-TC; 71045-TC-FY; 72170-TC-FY; 73562-TC-LT-FY; 80053; 82962; 83735; 84484; 85025; 85610; 85730; 86850; 86900; 86901; 99285-25; J0131

== ENCOUNTER 2024-05-11 08:25 | Emergency (ER) | payer OTHER ==
[2024-05-11 08:59] VITALS: BMI 33.4
[2024-05-11 10:38] LABS: HEMATOCRIT 40.5 % (35.4-49); HEMOGLOBIN 13.3 GM/dL (11.7-16.9); MCH 28.8 pg (25.7-33.7); MEAN CELL VOLUME 87.2 fl (80-96); MEAN PLT VOLUME 8.8 fl (7.5-11.1); PLATELET COUNT 173 10^3/uL (134-434); RBC 4.64 M/mm3 (4.00-5.60); RDW 15.6 % (11.9-15.9); WHITE BLOOD COUNT 6.4 K/mm3 (4.0-10.0)
[2024-05-11 10:51] LABS: VENOUS BASE EXCESS -6.1 mmol/L (-2-2); VENOUS O2 SATURATION 61.6 % (70-80); VENOUS PCO2 36.4 mmHg (38-52); VENOUS PH 7.336 (7.310-7.410)
[2024-05-11 11:03] LABS: ANISOCYTOSIS 0; MACROCYTOSIS 0
[2024-05-11 11:08] LABS: CHLORIDE 104 mmol/L (98-107); POTASSIUM 4.1 mmol/L (3.5-5.1); SODIUM 136 mmol/L (136-145)
[2024-05-11 11:10] LABS: ALBUMIN 2.6 g/dl (3.4-5.0); ANION GAP 10 mmol/L (4-13); BLOOD UREA NITROGEN 33.6 mg/dL (7-18); CALCIUM 9.5 mg/dL (8.5-10.1); CO2 22 mmol/L (21-32)
[2024-05-11] MEDS ORDERED: ACETAMINOPHEN INJECTION 100 ML ONE (11:10)
[2024-05-11 11:11] LABS: GLUCOSE,RANDOM 423 mg/dL (74-106)
[2024-05-11 11:13] LABS: SGOT/AST 126 U/L (15-37); SGPT/ALT 115 U/L (13-61)
[2024-05-11 11:14] LABS: CREATININE 1.6 mg/dL (0.55-1.3)
[2024-05-11 11:15] LABS: BILIRUBIN,TOTAL 4.6 mg/dL (0.2-1); TOT PROT 7.7 g/dl (6.4-8.2)
[2024-05-11] MEDS: ACETAMINOPHEN 1000 MG/100 ML BAG IVPB ONE (11:17)
[2024-05-11] MEDS: SODIUM CHLORIDE 0.9% 500 ML INFUS.BAG IV ONE (11:17)
[2024-05-11 11:28] LABS: LACTIC ACID 2.1 mmol/L (0.4-2.0)
[2024-05-11 11:34] LABS: ALK PHOS 1317 U/L (45-117)
[2024-05-11 20:06] VITALS: BP 130/60; PULSE 63; RESP 18
[2024-05-11 20:45] VITALS: TEMP 98.9
== END 2024-05-11 21:31 | disposition short-term general hospital (02) ==
LOC: JER 08:25
PROC: 3E033NZ Introduction of Analgesics, Hypnotics, Sedatives into Peripheral Vein, Percutaneous Approach (ICD-10-PCS; principal; 2024-05-11)
DX: E80.6 Other disorders of bilirubin metabolism (principal); R79.89 Other specified abnormal findings of blood chemistry; R19.7 Diarrhea, unspecified; R10.84 Generalized abdominal pain
CPT/HCPCS: 36415; 74177-TC; 80053; 82010; 82803; 82962; 83605; 83735; 85025; 93005; 93010; 99285-25; J0131